=== PATIENT | female | born 1975 ===

== ENCOUNTER 2025-04-18 09:59 | Outpatient (AMB) | payer MEDICARE, OTHER, SELFPAY ==
--- NOTE | 2025-04-18 10:02 | MHC.OFFVIS ---
Intake Visit Reasons: Congnitive dysfunction and memory changes HPI Comments Details: 49 years old woman with underlying history of rheumatoid arthritis, asthma, glaucoma, and diagnosis of fibromyalgia who has been seen previously for migraine headaches. She experiences these headaches on a daily basis, characterized by severe, pounding pain that starts at the temples and spreads to the front of the head. She had previously been on Imitrex for migraines, switched due to heart disease considerations, although no details of the new medication were provided. Her extensive medication list?which includes hydroxychloroquine, Lyrica, and multiple other prescriptions for rheumatoid arthritis, heart disease, and other conditions?may be contributing to the persistence of her headaches. She has not taken doparabate or similar medications in the past, but it was proposed for management of her current headache symptoms during nighttime. The impact and interaction of these medications with her existing conditions have not been fully elucidated. She had an MRI done in February at [facility] that did not reveal any significant abnormality other than some fluid and mastoid. She was not having any hearing problem. Her laboratories revealed sed rate of 30, a normal B12, folate, and TSH. Review of Systems Narrative - Neurological: Reports daily migraine headaches with a pounding sensation starting at the temples and spreading to the front of the head. - Cardiovascular: Reports heart disease. - Musculoskeletal: Reports rheumatoid arthritis. - Ophthalmologic: Reports glaucoma. - General: Denies active use of prednisone after prior use for a cold. Assessment & Plan Assessment & Plan (1) Chronic daily headache: Comment: MRI brain WO at [facility] in Feb 2025: Fluid in mastoid, brain ok (reported) Code(s): R51.9 - Headache, unspecified Category: Medical (2) Migraine without aura: Code(s): G43.009 - Migraine without aura, not intractable, without status migrainosus Category: Medical Qualifiers: Status migrainosus presence: without status migrainosus Intractability: intractable Qualified Code(s): G43.019 - Migraine without aura, intractable, without status migrainosus Plan Impression: a: Chronic daily headaches b: Migraine w/o aura c: Fair possiblity of iatrogenic headaches d: Underlying rheumatoid arthritis and CAD Rec: Try topiramate 25mg one at bedtime. Beta blockers and calcium channel blockers are not good choice for her. Depakote might be an option. If these do not work, CGRP inhibitor might be a better option. Medications: New topiramate 25 mg orally one at night; 30 tabs 1RF Coding Level of Care Code New Pt Level 4 (71932) Diagnoses Chronic daily headache R51.9 Intractable migraine without aura and without status migrainosus G43.019 Status migrainosus presence: without status migrainosus Intractability: intractable
--- OUTSIDE RECORDS SUMMARY | 2025-04-18 11:54 | XMS_ITS | Clinical Summary ---
Author Organization [facility] Address [address] [place] [address] Phone Care Team Providers Care Boiler Out Name Role Phone Sy Youngblood MD Primary Care Provider Allergies Active Allergy Reactions Criticality Noted Date Comments Bee Venom Protein (Honey Bee) Swelling High 04/17/2017 Iodine Swelling Medium 12/24/2013 Naproxen Swelling Medium 04/26/2024 Other 08/07/2015 Seasonal Allergies Sneezing , watery eye's Soap 10/17/2023 Soap & Cleansers Detergent/dish soap - causes seth cuts on hands Medications albuterol 2.5 mg /3 mL (0.083 %) nebulizer solution TAKE 1 VIAL BY NEBULIZATION EVERY 6 HOURS NEEDED FOR WHEEZING Active ezetimibe (ZETIA) 10 mg tablet Take 1 tablet (10 mg total) by mouth 1 (one) time each day. Active isosorbide mononitrate (IMDUR) 120 mg 24 hr tablet Take 1 tablet (120 mg total) by mouth 1 (one) time each day in the evening. Active albuterol HFA (Ventolin HFA) 90 mcg/actuation inhaler INHALE 2 PUFFS BY MOUTH EVERY 4 HOURS NEEDED FOR COUGH/WHEEZING/ FOR SHORTNESS OF BREATH Active EPINEPHrine (EpiPen 2-David) 0.3 mg/0.3 mL injection Inject 0.3 mg into the muscle as needed for Other (anaphylactic reaction). 2-pack. Fill with whichever brand is covered by insurance. Active nitroglycerin (NITROSTAT) 0.[address] 1 Tablet under the tongue every 5 minutes as needed for Chest pain. As needed for chest pain Active tiZANidine (ZANAFLEX) 4 mg tablet Take 1 tablet (4 mg total) by mouth 3 (three) times a day if needed. Active montelukast (SINGULAIR) 10 mg tablet Take 1 tablet (10 mg total) by mouth at bedtime. Active latanoprost (XALATAN) 0.005 % ophthalmic solution Administer 1 drop into both eyes at bedtime. Active ketoconazole (NIZORAL) 2 % cream APPLY TOPICALLY TO TOE WEBS TWICE DAILY NEEDED Active medical supply, miscellaneous (MISCELLANEOUS MEDICAL SUPPLY MISC) Misc. Devices (Pulse Oximeter) Mis 1 Each by Does not apply route as needed for Other (due to dyspnea). Active potassium chloride 20 mEq tablet extended release Take 1 tablet by mouth 1 (one) time each day. 90 tablet 2 Active blood-glucose meter [facility] Use to test glucose once daily. 1 each Active glucose blood (Blood Glucose Test) test strip Use as instructed 100 each 2025 Active Autolet lancing device Use 1 - 4 times daily as instructed 100 each 025 2025 Active lancets lancets Use 1 - 4 times daily as instructed 100 each 025 2025 Active Xeljanz XR 11 mg ER tablet Take 1 tablet (11 mg total) by mouth 1 (one) time each day. Dr Deal - rheumatology Active budesonide-formo teroL (Symbicort) 160-4.5 mcg/actuation inhaler Inhale 2 puffs by mouth 2 (two) times a day. INHALE 2 PUFFS INTO THE LUNGS TWICE A DAY Strength: 160-4.5 mcg/actuation 1 each 025 2025 Active ibuprofen (ADVIL,MOTRIN) 600 mg tablet Take 1 tablet (600 mg total) by mouth every 8 (eight) hours if needed for moderate pain. 30 tablet Active acetaminophen (TYLENOL) 500 mg tablet Take 2 tablets (1,000 mg total) by mouth every 8 (eight) hours. 60 each Active oxyCODONE (ROXICODONE) 5 mg immediate release tablet Take 0.5 tablets (2.5 mg total) by mouth every 4 (four) hours if needed for severe pain. Max Daily Amount: 15 mg 5 each Active isosorbide mononitrate (IMDUR) 60 mg 24 hr tablet TAKE 1 TABLET BY MOUTH EVERY MORNING 90 tablet 1 Active omeprazole (PriLOSEC) [address] capsule TAKE 1 CAPSULE BY MOUTH EVERY DAY 90 capsule 1 Active budesonide-formo teroL (Breyna) 160-4.5 mcg/actuation inhaler Inhale 2 puffs by mouth 2 (two) times a day. Rinse mouth with water after use to reduce aftertaste and incidence of candidiasis. Do not swallow. 1 each 025 2025 Active pregabalin (LYRICA) 100 mg capsule TAKE 1 CAPSULE BY MOUTH TWICE DAILY 60 capsule 1 Active potassium chloride (KLOR-CON M20) 20 mEq CR tablet TAKE 1 TABLET BY MOUTH 1 (ONE) TIME EACH DAY. 90 tablet 1 Active hydrOXYzine HCL (ATARAX) 25 mg tablet Take 1 tablet (25 mg total) by mouth 1 (one) time each day if needed for itching (allergies). 30 tablet 2 Active aspirin 81 mg EC tablet TAKE 1 TABLET BY MOUTH EVERY DAY 90 tablet 1 Active methylPREDNISolo ne (MEDROL DOSPAK) 4 mg tablet Follow schedule on package instructions 1 each Active furosemide (LASIX) 20 mg tablet TAKE 1 TABLET (20 MG TOTAL) BY MOUTH 1 (ONE) TIME EACH DAY. 90 tablet 1 025 Active atorvastatin (LIPITOR) 80 mg tablet TAKE 1 TABLET BY MOUTH EVERY DAY 90 tablet 1 025 Active metFORMIN XR (GLUCOPHAGE-XR) 500 mg 24 hr tablet TAKE 1 TABLET BY MOUTH EVERY DAY WITH BREAKFAST 90 tablet 1 025 Active sertraline (ZOLOFT) 50 mg tablet TAKE 1 & 1/2 TABLETS BY MOUTH EVERY DAY 135 tablet 1 025 Active dilTIAZem CD (CARDIZEM CD) 240 mg 24 hr capsule TAKE 1 CAPSULE BY MOUTH EVERY DAY 90 capsule 1 025 Active hydroxychloroqui ne (PLAQUENIL) 200 mg tablet Take 1 tablet (200 mg total) by mouth. 025 Active sertraline (ZOLOFT) 50 mg tablet TAKE 1 & 1/2 TABLETS BY MOUTH EVERY DAY 135 tablet 1 025 2024 Discontinued dilTIAZem CD (CARDIZEM CD) 240 mg 24 hr capsule TAKE 1 CAPSULE BY MOUTH EVERY DAY 90 capsule 1 025 2024 Discontinued Active Problems Problem Noted Date Diagnosed Date Contusion of right knee 04/12/2025 Left wrist pain 03/22/2025 Pain of right thumb 08/20/2024 Thumb pain, right 04/20/2024 Other chronic pain 04/20/2024 Primary osteoarthritis, right hand 04/20/2024 Unilateral primary osteoarth ritis of first carpometacarpal joint, right hand 04/20/2024 Fusion of joint 02/04/2024 Local skin infection 10/17/2023 Degenerative arthritis of me tacarpophalangeal joint of right thumb 08/18/2023 Primary osteoarthritis of fi rst carpometacarpal joint of right hand 08/18/2023 Palpitations 05/21/2023 Overview (03/31/2024): Last Assessment & Plan: The patient has been experiencing episodes of palpitations. We will order a 30 Day Loop monitor to evaluate for any underlying arrhythmias as a cause of her symptoms. Osteoarthritis, knee 05/07/2023 Right carpal tunnel syndrome 04/23/2023 Acquired trigger finger of right ring finger 01/2023 Swelling of lower extremity 11/19/2022 Overview (03/31/2024): Last Assessment & Plan: The patient presents today for triage visit reporting lower extremity edema which has worsened for the past 3 weeks. She was seen by her manometer technician who prescribed prednisone taper and she noticed the swelling only worsened. She also was seen by her PCP where she was reporting pain in her left ankle and swelling as well. She was prescribed a topical pain medication as well as was encouraged to take Tylenol as needed. In the past, the patient has underwent lower extremity venous duplex to rule out venous insufficiency. This was in January 2022 which revealed no DVT and no significant reflux noted. She was started on furosemide 20 mg orally daily. On today's visit, the patient appears to have bilateral lower extremity edema, and the left lower extremity is slightly more edematous. There is no erythema, however she does note ecchymosis to her left knee without known injury. I will have her complete a left lower extremity ultrasound to rule out DVT. She will also increase her furosemide to 40 mg orally daily for the next 3 days. She will complete lab work including BMP, magnesium, and BNP. She will call on Friday to update us in regards to her symptoms. She will also take an extra potassium for 3 days given she has a history of hypokalemia on furosemide. I did discuss with her that her symptoms are not likely noncardiac in nature given her normal echocardiogram December 2021 which revealed normal left ventricular diastolic function and normal systolic function with an LVEF of 60 to 65%. There is also no hemodynamically significant valve disease. She will follow-up with her PCP if her symptoms do not improve on the increased dose of Lasix. CAD (coronary artery disease) 08/26/2022 Overview (03/31/2024): Last Assessment & Plan: Patient has a history of moderate nonobstructive coronary artery disease based on left heart catheterization July 2022. She also underwent a cardiac nuclear PET stress test in May which showed no evidence of ischemia or infarct and myocardial blood flow was normal. She will rarely experience atypical chest discomfort which is likely secondary to her underlying vasospastic angina. We discussed possible triggers including stress and smoking. She will work on reducing the amount that she is smoking and has already cut down to 1 or 2 cigarettes a day. She has noticed improvement in her symptoms since optimizing her medical therapy. She will continue on isosorbide mononitrate, statin, ezetimibe, aspirin and diltiazem. Lumbar disc herniation with radiculopathy 2022 Overview (03/31/2024): Last Assessment & Plan: Ms. Garcia continues to describe lower back pain radiating down her left leg to and past her knee. She is tried PT in the past with no improvement. She has had a series of epidural injections by Dr. Ward the last of which was likely in March 2022 which helped for short time. At her last visit there she was prescribed muscle relaxers which she has taken 3 times a day for the last 3 days because she is felt awful since she fell down the stairs 5 or 6 days ago due to her left leg giving out. She is has had no relief from the tizanidine. On exam, there is no step-off deformity lumbar spine, she is tender in the midline along the entire lumbar spine and down into the sacrum. Seated SLR is positive on the right at 90 degrees (not the left), strength is 5/5, sensation light touch intact, gait is slow but steady. Review of the lumbar spine MRI dated 07/09/2022 shows no significant change from the study 1 year prior. There is a left-sided annular tear at L3-4 with a mild disc bulge and a slight left-sided disc bulge at L4-5 neither of which cause belinda nerve root compression. I discussed this with Ms. Garcia and do not feel that surgery is an option. I do not have the details of her past injections but, if this was not already performed, one could consider a left L3-4 PIERRE. Otherwise, she may be a candidate for spinal cord stimulator. She should follow-up with Dr. Ward to consider these options. Lung nodules 06/06/2022 Chronic pain of left knee 04/24/2022 Constipation 04/24/2022 Asthma-COPD overlap syndrome (CMS/HCC V24, CMS/H CC V28) 04/24/2022 Edema 12/19/2021 Overview (03/31/2024): Last Assessment & Plan: The patient refers symptoms of mild lower extremity edema that occur mostly towards the end of her day. 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 The patient does mention that the use of compression stockings help to relieve her symptoms. The description of her symptoms is suggestive of lower extremity venous insufficiency. As such, we will order lower extremity venous insufficiency study for further evaluation. Given her intermittent lower extremity edema, we will also order an echocardiogram to reevaluate her cardiac function and pulmonary artery pressures. Obstructive sleep apnea 09/10/2021 Overview (03/31/2024): [facility] Home sleep test 08/31/2021; weight 176; BMI 34. AHI 6; 4 obstructive apneas and 35 hypopneas. Average oxygen saturation 89% with oxygen vicente 77%. Obstructive sleep apnea-mild with mostly hypopneas and nocturnal hypoxemia based on 2021 home sleep test. Note: Patient has had a known history of nocturnal hypoxemia. Nocturnal hypoxia 08/03/2021 Overview (03/31/2024): 07/30/21 Overnight oximetery on RA shows: 1.Lowest O2-53% but due to prolong nature possibly artificial 2.28minutues under 88% 2OVERNIGHT OXIMETERY ON CPAP SHOWED: 1. LOWEST SpO2-85%. 2. SPENT <=88%-1.3MIN 3. NO SUPPLEMENTAL OXYGEN NEEDED HTN (hypertension) 06/19/2021 Overview (03/31/2024): Last Assessment & Plan: Patient has a history of arterial hypertension. Her blood pressure is noted to be well-controlled today. She will continue her current antihypertensive medication regimen as prescribed. HLD (hyperlipidemia) 06/19/2021 Overview (03/31/2024): Last Assessment & Plan: Patient has a history of hyperlipidemia as well as a history of coronary artery disease. Her last LDL cholesterol is noted to be 76. We discussed that her goal LDL should ideally be less than 70 given her history. She does admit she misses the zetia at times. We discussed the importance of taking her medications everyday. She will continue her current medication regimen with statin and ezetimibe. She will also work on healthy diet and lifestyle to further reduce her cholesterol levels. I have reviewed with the patient the importance of a heart healthy lifestyle which includes eating a low-fat low-salt diet, getting regular exercise, maintaining a healthy weight, not smoking, and following up with routine medical care. Moderate persistent asthma 06/21/2020 Snoring 02/01/2019 Overview (03/31/2024): 01/2019 Diagnostic polysomnogram did not reveal BRANDI or nocturnal hypoxia. [facility]MC arthritis 12/03/2018 Elevated alkaline phosphatase level 10/20/2018 Coronary artery vasospasm (CMS/HCC V24) 08/10/19 Overview (03/31/2024): 08/04 NSTEMI, clean cath, likely spasm [facility] 10/08/18 - increase diltiazem to 240 mg daily, continue aspirin and high-intensity statin therapy; follow-up 2 months 11/20/2018 - sleep study, follow-up 4 months 04/07/2019 - add long-acting nitrates secondary to ongoing chest pain; follow-up in 4 months Last Assessment & Plan: The patient has a longstanding history of episodes of atypical chest discomfort. She suffered a non-STEMI in 2018 that was thought to be secondary to coronary artery vasospasm given the left heart catheterization findings. The patient states that her symptoms of chest discomfort mostly occur with emotional activity. Because of her history of vasospastic angina she is on medical therapy with diltiazem and isosorbide mononitrate. Left heart catheterization in July 2022 showed moderate nonobstructive CAD. Cardiac nuclear PET stress test done in May 2023 did not show any evidence of ischemia or infarct and the myocardial blood flow was normal at rest, reserve, and stress. Given the normal myocardial blood flow the patient is unlikely to have microvascular angina. Her longstanding episodes of atypical chest discomfort (which occur with emotional stress) are likely secondary to vasospastic angina. I explained this to the patient in great detail. I explained that relationship between vasospastic angina and cigarette smoking. I encouraged the patient to quit smoking. In the meantime, we will adjust her isosorbide mononitrate and refer the patient to take 60 mg in the morning and 120 mg in the evening. The patient will continue her current dose of diltiazem. Fatigue 08/07/2017 Chronic pain of right thumb 12/23/2016 Overview (03/31/2024): Rheum 08/30 - symptoms also consistent with fibromyalgia Stress incontinence 03/25/2016 Overview (03/31/2024): [facility] Urogynecology - 05/06/16 - Voiding diary, f/u with Dr. Padron, considering surgery 09/06/16 - mid urethral sling and cystoscopy Rheumatoid arthritis ([facility] V24, [facility] V28) 12/26/2014 Overview (06/01/2024): Follow up with Dr. [facility] 2014 Methotrexate 02/28 - 08/01 (side effects- fatigue, nausea) 03/2015 - 08/2015 sulfasalazine - stopped working 08/2015 - 07/2016= Enbrel stopped working 04/2017 - 07/2017 = Plaquenil - side effects 05/2017 - Humira stopped working spring Orencia started, stopped working 01/2020- start Olumiant 05/2024- stopped Olumiant, started on Xeljanz Left hip pain 07/04/2014 Overview (03/31/2024): 05/30/14 - [facility] - left hip trochanteric bursitis, PT and NSAIDs, injection if this doesn't work Migraine 12/24/2013 Overview (03/31/2024): Dr. Rodriguez - 12/13/15 - stop Neurontin, prednisone started, amitriptyline 25 mg once a day started; follow-up 2 months 02/05/16 - increase amitryptyline to 50mg, avoid headache triggers, f/u 3 months 05/06/16 - continue amitriptyline, sumatriptan refilled; follow-up 6 months 10/21/16 - increase amitriptyline to 100 mg per day; follow-up 3 months 02/20/17 - continue amitriptyline and sumatriptan; follow-up 6 months 08/21/17 - continue medications, avoid headache triggers; follow-up 6 months 09/01 - start Fioricet, as needed; follow-up 6 months Pain in wrist, right Encounters Date Type Department Care Team Description 04/12/2025 10:45 AM EDT Office Visit Orthopedic Surgery [address] [phone] Trista Tinsley MD Thumb pain, right (Primary Dx); Left wrist pain; Contusion of right knee, initial encounter 03/22/2025 11:15 AM EDT Office Visit Orthopedic Surgery [address] [phone] Trista Tinsley MD Left wrist pain (Primary Dx); Rheumatoid arthritis with positive rheumatoid factor, involving unspecified site (CMS/HCC V24, CMS/HCC V28) 03/18/2025 3:30 PM EDT Office Visit Orthopedic Surgery [address] [phone] Laxmi Salinas PA Pain (Primary Dx); Left wrist pain 03/07/2025 6:54 PM EDT - 03/07/2025 10:33 PM EDT Emergency [facility] Emergency [address] [place] [phone] Discharge Disposition: Left Against Medical Advice 02/25/2025 12:38 PM EDT - 02/25/2025 11:59 PM EDT Hospital Encounter Radiology Department - [address] [phone] Ataxia; Cognitive dysfunction; Memory changes; Memory loss Discharge Disposition: Home or Self Care 02/22/2025 10:15 AM EDT Office Visit Orthopedic Surgery - [address] [phone] Laxmi Salinas PA Chronic pain of right thumb (Primary Dx) 02/01/2025 9:45 AM EDT Office Visit Pulmonology [address] [phone] Nica Groves MD Rheumatoid arthritis with positive rheumatoid factor, involving unspecified site (CMS/HCC V24, CMS/HCC V28) (Primary Dx); Moderate persistent asthma without complication; Lung nodules 02/01/2025 8:30 AM EDT Ancillary Procedure Pulmonology - [place] [address] [facility] [address] [place] [phone] Systemic lupus erythematosus, unspecified SLE type, unspecified organ involvement status ([facility] V24, [facility] V28) (Primary Dx); Rheumatoid arthritis, involving unspecified site, unspecified whether rheumatoid factor present ([facility] V24, [facility] V28); ILD (interstitial lung disease) ([facility] V24, [facility] V28); Moderate persistent asthma, unspecified whether complicated 01/24/2025 11:45 AM EDT Evaluation [facility] Occupational Therapy [address] [place] [phone] Laxmi Galdamez OT Pain of right thumb (Primary Dx); Primary osteoarthritis of first carpometacarpal joint of right hand; Post-operative state 01/21/2025 11:00 AM EDT Office Visit [facility] Medicine [address] [phone] Sy Youngblood MD Fibromyalgia (Primary Dx); Rheumatoid arthritis with positive rheumatoid factor, involving unspecified site ([facility] V24, [facility] V28); Ataxia; Anxiety and depression; Type 2 diabetes mellitus without complication, without long-term current use of insulin ([facility] V24, [facility] V28); Coronary artery disease involving [place] heart, unspecified vessel or lesion type, unspecified whether angina present; Asthma-COPD overlap syndrome ([facility] V24, [facility] V28); BRANDI on CPAP 01/20/2025 11:00 AM EDT Treatment [facility] Occupational [address] [phone] Letha Palencia COTA Rheumatoid arthritis with positive rheumatoid factor, involving unspecified site ([facility] V24, [facility] V28) (Primary Dx); Pain of right thumb; Thumb pain, right; Primary osteoarthritis of first carpometacarpal joint of right hand 01/17/2025 1:00 PM EDT Treatment [facility] Occupational Therapy [address] [place] [phone] Letha Palencia COTA Rheumatoid arthritis with positive rheumatoid factor, involving unspecified site ([facility] V24, [facility] V28) (Primary Dx); Pain of right thumb; Thumb pain, right; Primary osteoarthritis of first carpometacarpal joint of right hand 01/17/2025 12:30 PM EDT Treatment [facility] [address] [phone] Nesha Dillard, PT Ataxia (Primary Dx) from Last 3 Months Immunizations Immunization Administration Dates Next Due Hepatitis B (Pflkvsn-N-Unkrx , Recombivax HB-Adult) 19yo and older 10/22/2017,05/21/2017,04/23/2017 Influenza Quadravalent, MDCK , 0.5ml, preservative free (Flucelvax) 6mo and older 02/25/2023,03/05/2021,03/20/2019,03/09 Influenza Quadravalent, MDCK , 0.5ml, with preservative (Flucelvax) 6mo and older 04/17/2017 Influenza trivalent, 0.5mL, preservative free (Fluarix; FluLaval; Fluzone) ages 6mo and older (Afluria) 3 years and older 03/29/2020,04/05/2019,03/25/2016,06/07 Influenza trivalent, MDCK, 0 .5mL, preservative free (Flucelvax) 6mo and older 03/24/2025 Moderna SARS-CoV-2 COVID-19, mRNA, LNP-S, preservative free 09/13/2021 Pneumococcal polysaccharide 23 valent (Pneumovax 23) 2yo and older 06/27/2015,06/27/2015 Tdap Tetanus diptheria acell ular pertussis (Boostrix; Adacel) 7yo and older 02/16/2014 Surgical History Surgery Date Site/Laterality Comments TUBAL LIGATION 07/21/1997 PROCEDURE: HISTORICAL TUBAL LIGATION; COMMENT: in [place] MULTIPLE TOOTH EXTRACTIONS 2008 PROCEDURE: HISTORICAL DENTAL EXTRACTION; COMMENT: dentures OTHER SURGICAL HISTORY 08/17/2014 PROCEDURE: HISTORICAL TOTAL HYSTERECTOMY W/O BSO; COMMENT: LLUVIA/RSO HYSTERECTOMY 2014 PROCEDURE: HISTORICAL HYSTERECTOMY; COMMENT: polyp and cysts partial CHOLECYSTECTOMY 02/25/2018 PROCEDURE: HISTORICAL CHOLECYSTECTOMY COLONOSCOPY 05/11/2018 PROCEDURE: HISTORICAL COLONOSCOPY; COMMENT: Visually normal; random biopsies: normal. UPPER GASTROINTESTINAL ENDOSCOPY 05/11/2018 PROCEDURE: MI UPPER GI ENDOSCOPY PERFORMED; COMMENT: Visually normal; duodenal biopsies: non-specific duodenitis CARPAL TUNNEL RELEASE 08/25/2019 Left PROCEDURE: MI NEUROPLASTY &/TRANSPOS MEDIAN NRV CARPAL TUNNE; COMMENT: with arthrotomy of L thumb OTHER SURGICAL HISTORY 06/22/2020 Left PROCEDURE: MI CROSS INTRINSIC TRANSFER EACH TENDON; COMMENT: Dr. Tinsley; trapezoid ectomy and interpositional arthroplasty using FCR tendon CATARACT EXTRACTION 06/2022 Left PROCEDURE: HISTORICAL CATARACT REMOVAL CARPAL TUNNEL RELEASE 08/25/2023 Right PROCEDURE: MI NEUROPLASTY &/TRANSPOS MEDIAN NRV CARPAL TUNNE; COMMENT: Dr. Tinsley BREAST BIOPSY nagative HAND SURGERY 04/28/2024 Right Revision of right CMC arthroplasty of the thumb, biopsy of tissue, possible wrist aspiration, possible placement of antibiotic spacer CORONARY ANGIOPLASTY FINGER HARDWARE REMOVAL 09/27/2024 Right hardware at thumb MP fusion site TRIGGER FINGER RELEASE 09/27/2024 Right right thumb Medical History Medical History Date Comments Migraine 12/24/2013 DX:Migraine Tobacco abuse 08/15/2014 DX:Tobacco abuse Homelessness 07/03/2018 DX:Homelessness Nocturnal hypoxia 08/03/2021 DX:Nocturnal h ypoxia Anxiety state DX:Anxiety state Esophageal reflux DX:Esophageal reflux Asthma DX:Asthma Hyperlipidemia DX:Hyperlipidemi a HTN (hypertension) DX:HTN (hyper tension) History of MD (myocardial infarction) 2015 DX:History of MD (myocardial infarction) Glaucoma DX:Glaucoma; COM MENT: left eye Rheumatoid arthritis ([facility] V24, [facility] V28) DX:Rheumatoid arthritis ([facility] ) COPD (chronic obstructive pu lmonary disease) ([facility] V24, [facility] V28) DX:COPD (chronic o bstructive pulmonary disease) (HCC) Myocardial infarction ([facility] V24, [facility] V28) Diabetes mellitus ([facility] V 24, [facility] V28) Depression Chronic pain disorder Neuromuscular disorder ([facility]/ [facility] V24, [facility] V28) fibermyalsia Joint pain osteoarthritis Diverticulosis Family History Medical History Relation Name Comments Arthritis Aunt paternal aunt RA Hypertension Brother 1 Other: prediabetes Brother 2 Other: abnormal Pap smear Daughter 1 No Known Problems Daughter 2 No Known Problems Daughter 3 No Known Problems Daughter 4 Coronary artery disease Father Ovarian cancer Father's side Peternal Unc le Coronary artery disease Grandparent No Known Problems Maternal Grandfather Cataracts Maternal Grandmother Ovarian cancer Maternal Grandmother ? Coronary artery disease Mother Other: myocardial infarction Mother Ovarian cancer Mother 26 No Known Problems Other No Known Problems Paternal Grandfather Cataracts Paternal Grandmother No Known Problems Sister No Known Problems Son Blindness Neg Hx Breast cancer Neg Hx Glaucoma Neg Hx Macular degeneration Neg Hx Strabismus Neg Hx Relation Name Status Comments Aunt paternal aunt Brother 1 Alive Brother 2 Alive Daughter 1 Alive Daughter 2 Alive Daughter 3 Alive Daughter 4 Alive Father Alive CAD, DM, HTN Father's side Grandparent Maternal Grandfather Maternal Grandmother Lung ca ncer, open heart surgery Mother (Age 40) MD Other Paternal Grandfather Paternal Grandmother MD Sister Son Alive Social History Tobacco Use Types Packs/Day Years Used Date Smoking Tobacco: Every Day Cigarettes 0.5 29.2 Started: 10/05/1993; Last attempted to quit: 12/14/2022 Passive Smoke Exposure: Past Smokeless Tobacco: Never Tobacco Cessation:Ready to Q uit: Not Asked; Counseling Given: Not Answered Comments:Smoking 1 1/2 of a cig daily Alcohol Use Standard Drinks/Week Comments Never 0 (1 standard drink = 0.6 oz pur e alcohol) Interpersonal Safety Answer Date Record ed Physical Abuse Unrecognized value 09/27/2024 Verbal Abuse Unrecognized value 09/27/2024 Comments No Sex and Gender Information Value Date Recorded Sex Assigned at Female 04/16/2024 4:24 PM EDT Legal Sex Female 4:33 PM EST Gender Identity Female 04/16/2024 4:24 PM EDT Sexual Orientation Straight 04/16/2024 4: 24 PM EDT Obstetrics History Last Filed Vital Signs Vital Sign Reading Time Taken Comments Blood Pressure 117/77 03/07/2025 7:09 PM EDT Pulse 73 03/07/2025 7:09 PM EDT Temperature 36.6 C (97.9 F) 03/07/2025 7:09 PM EDT Respiratory Rate 16 03/07/2025 7:09 PM EDT Oxygen Saturation 98% 03/07/2025 7:09 PM EDT Inhaled Oxygen Concentration - - Weight 79.4 kg (175 lb) 04/12/2025 10:45 AM EDT Height 154.9 cm (5' 1 ) 04/12/2025 10:45 AM EDT Body Mass Index 33.07 04/12/2025 10:45 AM EDT Plan of Treatment Upcoming Encounters Date Type Department Care Team (Late st Contact Info) Description 04/25/2025 12:30 PM EST Office Visit Adult Medicine [facility] [address], [place] [phone] Sy Youngblood MD [address] [place], [place] 06/03/2025 1:30 PM EST Office Visit Pulmonology - [address] [place] [phone] Nica Groves MD [address] [place] [phone] Health Maintenance Due Date Last Done Comments Diabetes: Annual Foot Exam 10/05/1985 Diabetes: Annual Retina Eye Exam 10/05/1985 HIV Screening 05/24/2022 Hepatitis C Screening 05/24/2022 Medicare Annual Wellness Visit 05/24/2022 Social Influencers of Health Screening 05/24/2022 DTaP,Tdap,and Td Vaccines (2 - Td or Tdap) 02/17/2024 02/16/2014 Depression Screening 06/16/2024 COVID-19 Vaccine ( season) 2025 09/13/2021, 04/04/2021, 03/05/2021 Diabetes: Blood Sugar Control Test (HGBA1C) 04/23/2025 10/21/2024, 06/23/2024, 03/02/2024, Additional history exists Diabetes: Annual Urine Albumin-Creatinine Ratio (uACR) 10/21/2025 10/21/2024, 06/23/2024 Breast Cancer Screening 02/04/2026 02/05/20 24, 02/05/2024, 01/27/2023, Additional history exists Diabetes: Annual GFR (Glomerular Filtration Rate) 03/07/2026 03/07/2025, 10/21/2024, 09/12/2024, Additional history exists Hypertension/CHF/CAD Annual BMP Blood Test 03/07/2026 03/07/2025, 10/21/2024, 09/12/2024, Additional history exists Cholesterol Screening (Lipid Panel) 10/21/2029 10/21/2024, 11/28/2023, 11/28/2023 Colorectal Cancer Screening: Colonoscopy 11/27/2033 11/28/2023 RSV Immunization Adult Patients (1 - 1-dose 75+ series) 10/05/2050 Hepatitis B Vaccines Completed 10/22/2017, 05/21/2017, 04/23/2017 Pneumococcal Vaccine: Pediatrics (0 to 5 Years) and At-Risk Patients (6 to 49 Years) Completed 05/28/2024, 06/27/2015, 06/27/2015 Influenza Vaccine Completed 03/24/2025, , 02/25/2023, Additional history exists HIB Vaccines Aged Out No longer eligi ble based on patient's age to complete this topic HPV Vaccines Aged Out No longer eligi ble based on patient's age to complete this topic Hepatitis A Vaccines Aged Out No long er eligible based on patient's age to complete this topic IPV Vaccines Aged Out No longer eligi ble based on patient's age to complete this topic MMR Vaccines Aged Out No longer eligi ble based on patient's age to complete this topic Meningococcal ACWY Vaccine Aged Out N o longer eligible based on patient's age to complete this topic Meningococcal B Vaccine Aged Out No l onger eligible based on patient's age to complete this topic RSV Immunization Patients Under 20 months Aged Out No longer eligible based on patient's age to complete this topic Varicella Vaccines Aged Out No longer eligible based on patient's age to complete this topic Goals Goal Patient Goal Type Associated Problems Recent Progress Patient-Stated? Author <enter goal here> General Worsening( 11:04 AM EDT) Yes Tania Blanchard, OT Note: I want this finger to not feel stuck so I can use my hand, not feel so much pain PT LTG - 6 visits General No Nesha Dillard, PT Note: Patient is able to ambulate 600 ft with rollator walker Patient is able to perform 5 sit to stand without UE assistance Able to improve FGA score by 8 points Patient is able to achieve 4+/5 knee flexion and extension strength bilaterally Patient is independent and compliant with HEP OT 8-10 visits General On track( 025 12:58 PM EDT) No Laxmi Galdamez, OT Note: R thumb palmar abd at least 45 to stablize small can/cup ' 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# 01/24 Met 10# R lat pinch at least 4 to enable opening food packages 01/24 Met 4# then increased pain R wrist ext at least 50 w/ tolerance for PWB'ing 01/24 Met and exceed at 60' Procedures Procedure Name Priority Date/Time Associated Diagnosis Comments XR WRIST 3+ VIEWS LEFT Routine 3:24 PM EDT Pain CBC WITH AUTO DIFFERENTIAL STAT 03/07/2025 7:37 PM EDT LIPASE STAT 03/07/2025 7:37 PM EDT COMPREHENSIVE METABOLIC PANEL STAT 03/07/2025 7:37 PM EDT CBC AND DIFFERENTIAL STAT 03/07/2025 7:37 PM EDT MR BRAIN WO CONTRAST Routine 02/25/2025 1:33 PM EDT Ataxia Cognitive dysfunction Memory changes Memory loss XR FINGERS 2+ VIEWS RIGHT Routine 02/22/2025 10:37 AM EDT Chronic pain of right thumb PULMONARY FUNCTION TESTING Routine 02/01/2025 9:06 AM EDT Systemic lupus erythematosus, unspecified SLE type, unspecified organ involvement status (CMS/[facility] V24, CMS/[facility] V28) Rheumatoid arthritis, involving unspecified site, unspecified whether rheumatoid factor present (CMS/HCC V24, CMS/HCC V28) ILD (interstitial lung disease) (CMS/HCC V24, CMS/HCC V28) Moderate persistent asthma, unspecified whether complicated MICROALBUMIN CREATININE URINE RATIO Routine 10/21/2024 12:00 PM EDT Ataxia Injury of left knee, initial encounter Primary hypertension Mixed hyperlipidemia Rheumatoid arthritis with positive rheumatoid factor, involving unspecified site (CMS/HCC V24, CMS/HCC V28) Asthma-COPD overlap syndrome (CMS/HCC V24, CMS/HCC V28) Coronary artery vasospasm (CMS/HCC V24) Prediabetes HEMOGLOBIN A1C Routine 10/21/2024 12:00 PM EDT Ataxia Injury of left knee, initial encounter Primary hypertension Mixed hyperlipidemia Rheumatoid arthritis with positive rheumatoid factor, involving unspecified site (CMS/HCC V24, CMS/HCC V28) Asthma-COPD overlap syndrome (CMS/HCC V24, CMS/HCC V28) Coronary artery vasospasm (CMS/HCC V24) Prediabetes LIPID PANEL WITH REFLEX TO DIRECT LDL Routine 10/21/2024 12:00 PM EDT Ataxia Injury of left knee, initial encounter Primary hypertension Mixed hyperlipidemia Rheumatoid arthritis with positive rheumatoid factor, involving unspecified site (CMS/HCC V24, CMS/HCC V28) Asthma-COPD overlap syndrome (CMS/HCC V24, CMS/HCC V28) Coronary artery vasospasm (CMS/HCC V24) Prediabetes SCREENING MAMMOGRAPHY BI 2-VIEW BREAST INC CAD Routine 02/05/2024 10:32 AM EDT Encounter for screening mammogram for malignant neoplasm of breast from Last 3 Months or Most Recently Relevant to Health Maintenance Results * XR Wrist 3+ Views Left (03/18/2025 3:24 PM EDT) Anatomical Region Laterality Modality Upper Extremities, Wrist Left Compute d Radiography Narrative 03/18/2025 4:22 PM EDT Date of Visit: 03/18/2025 Reason for visit: Left wrist pain after fall Views: AP, lateral, oblique and scaphoid view Comparison: X-rays of the left wrist from 2019 Findings: Mild arthritic changes of the radiocarpal joint and diffuse cystic changes of the carpal bone. Sequelae of prior trapeziectomy interpositional arthroplasty left thumb. No acute findings or evidence of fracture. Alignment maintained no widening of scapholunate interval Impression: Postsurgical changes no acute findings no fracture us Laxmi BROOKS IMG XR PROCEDURES Final Resul t * (ABNORMAL) CBC auto differential (03/07/2025 7:37 PM EDT) WBC 15.6(H) 4.8 - 10.8 K/mcL LAB [facility] RBC 4.40 3.80 - 4.80 M/mcL [facility]07[facility]25 [facility] Hemoglobin 13.1 11.5 - 16.0 g/dL LAB HEMETOLOGY METHOD 03/07/2025 8:26 PM [facility] Hematocrit 39.0 35.0 - 47.0 % LAB HEMETOLOGY METHOD 03/07/2025 8:26 PM [facility] MCV 87.8 79.0 - 98.0 FL LAB HEMETOLOGY METHOD 03/07/2025 8:26 PM EDT [facility] MCH 29.5 27.0 - 32.0 pcg LAB HEMETOLOGY METHOD 03/07/2025 8:26 PM [facility] MCHC 33.6 32.0 - 37.0 g/dL LAB HEMETOLOGY METHOD 03/07/2025 8:26 PM [facility] RDW 17.6(H) 11.0 - 15.0 % LAB HEMETOLOGY METHOD 03/07/2025 8:26 PM [facility] Platelets 336 130 - 400 K/mcL LAB HEMETOLOGY METHOD 03/07/2025 8:26 PM EDT [facility] MPV 11.3(H) 7.0 - 11.0 FL LAB HEMETOLOGY METHOD 03/07/2025 8:26 PM [facility] NRBC 0.0 <1.0 % LAB [facility]OLOGY [facility]07[facility]2025 8[facility] NRBC Absolute 0.00 <0.10 K/mcL LAB HEMETOLOGY METHOD 03/07/2025 8:26 PM [facility] Neutrophils Relative 74.9 % LAB HEMETOLOGY METHOD 03/07/2025 8:26 PM [facility] Lymphocytes Relative 20.3 % LAB HEMETOLOGY METHOD 03/07/2025 8:26 PM [facility] Monocytes Relative 4.3 % LAB HEMETOLOGY METHOD 03/07/2025 8:26 PM [facility] Eosinophils Relative 0.0 % LAB HEMETOLOGY METHOD 03/07/2025 8:26 PM [facility] Basophils Relative 0.1 % LAB HEMETOLOGY METHOD 03/07/2025 8:26 PM [facility] Immature Granulocytes Relative 0.4 % LAB HEMETOLOGY METHOD 03/07/2025 8:26 PM [facility] Neutrophils Absolute 11.65(H) 1.50 - 7.00 K/mcL LAB HEMETOLOGY METHOD 03/07/2025 8:26 PM [facility] Lymphocytes Absolute 3.16 1.00 - 5.00 K/mcL LAB HEMETOLOGY METHOD 03/07/2025 8:26 PM [facility] Monocytes Absolute 0.67 0.20 - 1.00 K/mcL LAB HEMETOLOGY METHOD 03/07/2025 8:26 PM [facility] Eosinophils Absolute 0.00 0.00 - 0.50 K/[facility] LAB HEMETOLOGY METHOD 03/07/2025 8:26 PM EDT [facility] Basophils Absolute 0.01 0.00 - 0.20 K/[facility] LAB HEMETOLOGY METHOD 03/07/2025 8:26 PM EDT [facility] Immature Granulocytes Absolute 0.07(H) 0.00 - 0.03 K/[facility] LAB HEMETOLOGY METHOD 03/07/2025 8:26 PM EDT [facility] Blood Venous blood specimen / Unknown Venipuncture / Unknown 03/07/2025 7:37 PM EDT 03/07/2025 8:10 PM EDT Keyon Farfan MD LAB BLOOD ORDERABLES Final R esult Performing Organization Address City/[facility]/ZIP Co de Phone Number [facility] [address] [place] [address], [place] [phone] * Lipase (03/07/2025 7:37 PM EDT) Lipase 36 13 - 75 unit/L LAB CHEMISTRY METHOD 03/07/2025 8:47 PM EDT [facility] Blood Venous blood specimen / Unknown Venipuncture / Unknown 03/07/2025 7:37 PM EDT 03/07/2025 8:10 PM EDT Keyon Farfan MD LAB BLOOD ORDERABLES Final R esult [facility] [address] [place] [address], [place] [phone] * (ABNORMAL) Comprehensive metabolic panel (03/07/2025 7:37 PM EDT) Sodium 141 133 - 145 mmol/L LAB CHEMISTRY METHOD 03/07/2025 8:47 PM EDT [facility] Potassium 3.1(L) 3.5 - 5.5 mmol/L LAB CHEMISTRY METHOD 03/07/2025 8:47 PM [facility] Chloride 108 96 - 110 mmol/L LAB CHEMISTRY METHOD 03/07/2025 8:47 PM [facility] CO2 27 21 - 32 mmol/L LAB CHEMISTRY METHOD 03/07/2025 8:47 PM [facility] Anion Gap 6 3 - 11 LAB CHEMISTRY METHOD 03/07/2025 8:47 PM [facility] Glucose 90 70 - 100 mg/dL LAB CHEMISTRY METHOD 03/07/2025 8:47 PM [facility] BUN 11 5 - 25 mg/dL LAB CHEMISTRY METHOD 03/07/2025 8:47 PM [facility] Creatinine 0.75 0.50 - 1.10 mg/dL LAB CHEMISTRY METHOD 03/07/2025 8:47 PM [facility] eGFR 98 >=60 mL/min/1. 73m2 LAB CHEMISTRY METHOD 03/07/2025 8:47 PM [facility] Comment:Calculation based on the Chronic Kidney Disease Epidemiology Collaboration (CKD-EPI) equation refit without adjustment for race. BUN/Creatinine Ratio 14.7 LAB CHEMISTRY METHOD 03/07/2025 8:47 PM [facility] Calcium 9.0 8.5 - 10.5 mg/dL LAB CHEMISTRY METHOD 03/07/2025 8:47 PM [facility] AST (SGOT) 17 10 - 42 unit/L LAB CHEMISTRY METHOD 03/07/2025 8:47 PM [facility] ALT (SGPT) 51 10 - 60 unit/L LAB CHEMISTRY METHOD 03/07/2025 8:47 PM [facility] Alkaline Phosphatase 180(H) 42 - 121 unit/L LAB CHEMISTRY METHOD 03/07/2025 8:47 PM [facility] Total Protein 6.8 6.0 - 8.0 g/dL LAB CHEMISTRY METHOD 03/07/2025 8:47 PM EDT [facility] Albumin 3.4 3.2 - 5.0 g/dL LAB CHEMISTRY METHOD 03/07/2025 8:47 PM EDT [facility] Total Bilirubin 0.2 0.0 - 1.4 mg/dL LAB CHEMISTRY METHOD 03/07/2025 8:47 PM EDT [facility] Blood Venous blood specimen / Unknown Venipuncture / Unknown 03/07/2025 7:37 PM EDT 03/07/2025 8:10 PM EDT us Keyon Farfan MD LAB BLOOD ORDERABLES Final R esult [facility] [address] [place] [address], * MR Brain wo Contrast (02/25/2025 1:33 PM EDT) Anatomical Region Laterality Modality Head and Neck Magnetic Resonan ce 02/25/2025 3:40 PM EDT Impressions 02/25/2025 3:51 PM EDT Impression: 1. No acute intracranial process. 2. Small amount of fluid within the left greater than right mastoids which could represent mastoiditis in the appropriate clinical setting. -------- FINAL REPORT -------- Dictated By: Colette Dietz Dictated Date: 02/25/2025 15:40 ET Assigned Physician: Colette Dietz Reviewed and Electronically Signed By: Colette Dietz Signed Date: 02/25/2025 15:51 ET Workstation ID: [id number] Transcribed By: Self Edit Transcribed Date: 02/25/2025 15:40 ET Narrative 02/25/2025 3:51 PM EDT MRI BRAIN WITHOUT CONTRAST Clinical Statement: Memory Loss Comparison: None Technique: Multiplanar, multisequence MR images of the brain were obtained without contrast. Findings: There is no evidence of diffusion restriction. Brain parenchyma is within normal limits. Intracranial flow voids are within normal limits. The ventricular system is normal in size and morphology. The basilar cisterns are within normal limits. The craniocervical junction is grossly within normal limits. The orbits and globes are within normal limits. Trace mucosal thickening within the paranasal sinuses. Small amount of fluid within the left greater than right mastoids. Procedure Note Colette Dietz MD - 02/25/2025 MRI BRAIN WITHOUT CONTRAST Clinical Statement: Memory Loss Comparison: None Technique: Multiplanar, multisequence MR images of the brain wereobtained without contrast. Findings: There is no evidence of diffusion restriction. Brain parenchymais within normal limits. Intracranial flow voids are within normallimits. The ventricular system is normal in size and morphology. Thebasilar cisterns are within normal limits. The craniocervical junction isgrossly within normal limits. The orbits and globes are within normallimits. Trace mucosal thickening within the paranasal sinuses. Smallamount of fluid within the left greater than right mastoids. IMPRESSION: Impression: 1. No acute intracranial process. 2. Small amount of fluid within the left greater than right mastoids whichcould represent mastoiditis in the appropriate clinical setting. -------- FINAL REPORT -------- Dictated By: Colette Dietz Dictated Date: 02/25/2025 15:40 ET Assigned Physician: Colette Dietz Reviewed and Electronically Signed By: Colette Dietz Signed Date: 02/25/2025 15:51 ET Workstation ID: [id number] Transcribed By: Self Edit Transcribed Date: 02/25/2025 15:40 ET Lorenza BROOKS IMG MRI PROCEDURES Final Result * XR Fingers 2+ Views Right (02/22/2025 10:37 AM EDT) Anatomical Region Laterality Modality Upper Extremities, Fingers Right Compu fernando Radiography Narrative 02/22/2025 11:06 AM EDT Date of Visit: 02/22/2025 Reason for visit: Right thumb pain Views: AP, lateral, oblique right thumb Comparison: X-rays from 2023, prior to hardware removal from MP joint Findings: Hardware from MP joint has since been removed. Solid MP joint fusion. Alignment of the thumb metacarpal maintained. No significant subsidence. Anchors visualized. No obvious soft tissue swelling. Impression: Right thumb postsurgical changes, stable. No acute findings Laxmi BROOKS IMG XR PROCEDURES Final Resul t * Pulmonary function testing: Carbon Monoxide Diffusing Capacity, Spirometry with Bronchodilator (02/01/2025 9:06 AM EDT) Impressions Nevin Mcneil MD - 02/01/2025 9:06 AM EDT FEV1/FVC 86%. FEV1 1.98 at 78%. FVC 72%. No bronchodilator response. TLC 71%. RV 54%. DLCO 55% (69%). No obstruction. Mild restriction. And moderate decrease in diffusion. Findings consistent with mild restrictive lung disease. us Nica Groves MD PFT ORDERABLES Final Result * Lipid panel with reflex to direct LDL (10/21/2024 12:00 PM EDT) Cholesterol 165 0 - 200 mg/dL LAB CHEMISTRY METHOD 10/21/2024 2:54 PM EDT [facility] Triglycerides 140 0 - 150 mg/dL LAB CHEMISTRY METHOD 10/21/2024 2:54 PM EDT [facility] HDL 48 >=40 mg/dL LAB CHEMISTRY METHOD 10/21/2024 2:54 PM EDT [facility] LDL Calculated 89 0 - 100 mg/dL LAB CHEMISTRY METHOD 10/21/2024 2:54 PM EDT [facility] VLDL Cholesterol Edy 28 mg/dL LAB CHEMISTRY METHOD 10/21/2024 2:54 PM EDT [facility] Non HDL Chol. (LDL+VLDL) 117 <145 mg/dL LAB CHEMISTRY METHOD 10/21/2024 2:54 PM EDT [facility] Chol/HDL Ratio 3.4 0.0 - 4.4 LAB CHEMISTRY METHOD 10/21/2024 2:54 PM EDT [facility] Blood Venous blood specimen / Unknown Venipuncture / Unknown 10/21/2024 12:00 PM EDT 10/21/2024 12:00 PM EDT Lorenza BROOKS LAB BLOOD ORDERABLES Fin al Result [facility] [address] [place] [address], [place] [phone] * Microalbumin creatinine urine ratio (10/21/2024 12:00 PM EDT) Creatinine, Urine 68.0 mg/dL LAB CHEMISTRY METHOD 10/21/2024 3:29 PM EDT [facility] Microalb, Ur <5.0 0.0 - 29.0 mg/L LAB CHEMISTRY METHOD 10/21/2024 3:29 PM EDT [facility] Microalb/Creat Ratio <7 <30 mg/g creat LAB CHEMISTRY METHOD 10/21/2024 3:29 PM EDT [facility] Urine Urine specimen obtained by clean catch procedure / Unknown Non-blood Collection / Unknown 10/21/2024 12:00 PM EDT 10/21/2024 12:00 PM EDT Lorenza BROOKS LAB URINE ORDERABLES Fin al Result [facility] [address] [place] [address], [place] [phone] * (ABNORMAL) Hemoglobin A1c (10/21/2024 12:00 PM EDT) Hemoglobin A1C 6.7(H) <6.5 % LAB CHEMISTRY METHOD 10/21/2024 10:12 PM EDT [facility] Mean Bld Glu Estim. 146 mg/dL LAB CHEMISTRY METHOD 10/21/2024 10:12 PM EDT [facility] Blood Venous blood specimen / Unknown Venipuncture / Unknown 10/21/2024 12:00 PM EDT 10/21/2024 12:00 PM EDT Lorenza BROOKS LAB BLOOD ORDERABLES Fin al Result [facility] [address] [place] [address], * SCREENING MAMMOGRAPHY BI 2-VIEW BREAST INC CAD (02/05/2024 10:32 AM EDT) Anatomical Region Laterality Modality Radiographic Natalia ging 01/27/2023 10:3 8 AM EDT Narrative 02/05/2024 6:22 PM EDT This is a summary report. The complete report is available in the patient's medical record. If you cannot access the medical record, please contact the sending organization for a detailed fax or copy. Study: SCREENING MAMMOGRAPHY BI 2-VIEW BREAST INC CAD Technique: Bilateral full-field digital screening mammography is obtained and read in conjunction with computer aided detection. Tomosynthesis as well as 2D C-View imaging were obtained. Comparison: Comparison made to multiple priors, most recent January 27, 2023, and most remote November 30, 2015. Breast composition: The breast tissue is heterogeneously dense, which may obscure small masses. Bilateral breasts: No significant masses, suspicious calcifications or other abnormalities are seen in either breast. IMPRESSION: Impression: Bilateral breasts: Negative, no specific mammographic evidence of malignancy. Normal interval follow-up is recommended in 12 months. BI-RADS: Category 1: Negative Procedure Note Kay Delaney MD - 03/31/2024 This is a summary report. The complete report is available in thepatient's medical record. If you cannot access the medical record, pleasecontact the sending organization for a detailed fax or copy. Study: SCREENING MAMMOGRAPHY BI 2-VIEW BREAST INC CAD Technique: Bilateral full-field digital screening mammography is obtainedand read in conjunction with computer aided detection. Tomosynthesis aswell as 2D C-View imaging were obtained. Comparison: Comparison made to multiple priors, most recent January, and most remote November 30, 2015. Breast composition: The breast tissue is heterogeneously dense, which mayobscure small masses. Bilateral breasts: No significant masses, suspicious calcifications orother abnormalities are seen in either breast. IMPRESSION: Impression: Bilateral breasts: Negative, no specific mammographic evidence ofmalignancy. Normal interval follow-up is recommended in 12 months. BI-RADS: Category 1: Negative us Sy Youngblood MD IMG XR PROCEDURES Final Res ult from Last 3 Months or Most Recently Relevant to Health Maintenance Insurance [facility] MEDICARE MEDICAID - [place] Advance Directives * Full Code - Default (Latest Code Status on File) Date Activated Date Inactivated Comments 09/27/2024 6:23 AM 09/27/2024 12:02 PM This is ord er is used when code status has not been discussed with the patient, or code status is otherwise unknown/unconfirmed To update the patient's code status, place a code status order. Do not modify or discontinue any currently active code status orders. * Full Code - Default Date Activated Date Inactivated Comments 04/28/2024 10:00 AM 04/28/2024 5:35 PM This is o rder is used when code status has not been discussed with the patient, or code status is otherwise unknown/unconfirmed To update the patient's code status, place a code status order. Do not modify or discontinue any currently active code status orders. * Full Code - Default Date Activated Date Inactivated Comments 04/28/2024 10:00 AM 04/28/2024 10:00 AM This is order is used when code status has not been discussed with the patient, or code status is otherwise unknown/unconfirmed To update the patient's code status, place a code status order. Do not modify or discontinue any currently active code status orders. Care Teams Boiler Out Relationship Specialty Start Date End Date Sy Youngblood MD [address] [place] [address] PCP - General Internal Medicine 01/24/22
--- OUTSIDE RECORDS SUMMARY | 2025-04-18 11:54 | XMS_ITS | Clinical Summary ---
Author Organization [facility] Address [address] [place] [address] Care Team Providers Care Reel Operator Name Role Phone Sy Youngblood MD Primary Care Provider [phone] Allergies Active Allergy Reactions Criticality Noted Date Comments Bee Sting 03/05/2023 Iodine 03/05/2023 Seasonal 03/05/2023 Medications Medication Sig Dispensed Refills Start Date End Date Status aspirin EC 81 MG tablet Take 1 tablet (81 mg total) by mouth daily. 0 Active nitroglycerin (NITROSTAT) 0.[address] 1 tablet (0.4 mg total) under the tongue every 5 (five) minutes as needed for chest pain. 0 Active omeprazole (PriLOSEC) 20 MG capsule Take 1 capsule (20 mg total) by mouth daily. 0 Active triamcinolone acetonide (KENALOG) 10 MG/ML injection Inject into the articular space once. 0 Active dilTIAZem (CARDIZEM CD) 240 MG 24 hr capsule Take 1 capsule (240 mg total) by mouth daily. 0 Active Diclofenac Sodium 1 % GEL Apply topically. 0 Active Albuterol Sulfate 108 (90 Base) MCG/ACT AEPB Inhale into the lungs. 0 Active fluticasone (FLONASE) 50 MCG/ACT nasal spray spray/apply 1 spray in each nostril daily. 0 Active albuterol (ACCUNEB) 0.63 MG/3ML nebulizer soln (NICU) Take 3 mL (0.63 mg total) by nebulization every 6 (six) hours as needed for wheezing. 0 Active montelukast (SINGULAIR) 10 MG tablet Take 1 tablet (10 mg total) by mouth every night at bedtime. 0 Active diclofenac (VOLTAREN) 50 MG EC tablet Take 1 tablet (50 mg total) by mouth 2 (two) times a day. 0 Active furosemide (LASIX) 20 MG tablet Take 1 tablet (20 mg total) by mouth 2 (two) times a day. 0 Active acetaminophen (TYLENOL) 325 MG tablet Take 2 tablets (650 mg total) by mouth every 6 (six) hours as needed for pain. 0 Active terbinafine (LamiSIL) 250 MG tablet Take 1 tablet (250 mg total) by mouth daily. 0 Active isosorbide mononitrate (IMDUR) 120 MG 24 hr tablet Take 1 tablet (120 mg total) by mouth daily. 0 Active buPROPion (WELLBUTRIN XL) 150 MG 24 hr tablet Take 1 tablet (150 mg total) by mouth daily. 0 Active atorvastatin (LIPITOR) tablet 80 mg Take 1 tablet (80 mg total) by mouth daily. 0 Active pregabalin (LYRICA) capsule 150 mg Take 1 capsule (150 mg total) by mouth 2 (two) times a day. 0 Active baricitinib (OLUMIANT) 2 MG tablet daily. 0 Active Active Problems No known active problems Social History Tobacco Use Types Packs/Day Years Used Date Smoking Tobacco: Former Cigarettes Smokeless Tobacco: Never Tobacco Cessation:Counseling Given: Not Answered Alcohol Use Standard Drinks/Week Comments Never 0 (1 standard drink = 0.6 oz pur e alcohol) Sex and Gender Information Value Date Recorded Sex Assigned at Not on file Gender Identity Not on file Sexual Orientation Not on file Job Start Date Occupation Industry Not on file Not on file Not on file Last Filed Vital Signs Vital Sign Reading Time Taken Comments Blood Pressure 121/94 02/12/2023 11:28 AM EDT Pulse 99 02/12/2023 11:28 AM EDT Temperature 36.3 C (97.3 F) 02/12/2023 11:28 AM EDT Respiratory Rate - - Oxygen Saturation 100% 02/12/2023 11:28 AM EDT Inhaled Oxygen Concentration - - Weight 76.2 kg (168 lb) 02/12/2023 11:28 AM EDT Height - - Body Mass Index - - Plan of Treatment Health Maintenance Due Date Last Done Comments Hepatitis C Screening 1975 Depression Screening 1987 Preventative Health Evaluation 10/05/1993 Cervical Cancer Screening (Pap Smear) 10/05/1996 Colon Cancer Screening (Colonoscopy) 10/05/2020 DTap / Tdap / Td (2 - Td or Tdap) 02/17/2024 02/16/2014 COVID-19 Vaccine (3 - season) 2025 04/04/2021, 03/05/2021 Influenza Vaccine (#1) 2025 3, 03/05/2021, 03/29/2020, Additional history exists Pneumococcal Vaccine Aged Out 06/27/2015 No long er eligible based on patient's age to complete this topic Hepatitis B Vaccines Completed 10/22/2017, 05/21/2017, 04/23/2017 RSV Ped < 20 months Aged Out No longe r eligible based on patient's age to complete this topic Care Teams Reel Operator Relationship Specialty Start Date End Date Sy Youngblood MD [address] [place] [id number] PCP - General Hospitalist Medicine 12/13/22
== END 2025-04-18 10:36 | disposition home or self-care (01) ==
PROVIDERS: PCP Physician Assistant; Visit Provider Psychiatry & Neurology Neurology
DX: R51.9 Headache, unspecified (principal); G43.019 Migraine without aura, intractable, without status migrainosus
CPT/HCPCS: 99204

== ENCOUNTER → 2025-04-18 09:59 | Outpatient (BNVA) | payer MEDICARE, MEDICAID, SELFPAY | PROVIDERS: PCP Physician Assistant; Visit Provider Psychiatry & Neurology Neurology | DX: G43.019 Migraine without aura, intractable, without status migrainosus (principal); M06.9 Rheumatoid arthritis, unspecified; R41.3 Other amnesia; M79.7 Fibromyalgia | CPT/HCPCS: 99202 ==

== ENCOUNTER 2025-05-18 11:15 | Outpatient (AMB) | payer MEDICARE, OTHER, SELFPAY ==
--- NOTE | 2025-05-18 11:18 | MHC.OFFVIS ---
Vital Signs 05/18/25 11:25 Height 5 ft 1 in Weight 167 lb BMI 31.6 BP 102/70 Blood Pressure Location Lt brachial Position Sitting Respiration 16 Pulse 101 H Pulse Source Pulse Oximeter Pulse Oximetry (%) 99 Oxygen Delivery Method Room Air Intake Visit Reasons: 1 month follow up Boatswain'S Mate Required: No Allergies naproxen Allergy (Severe, Verified 05/18/25 11:26) Swelling HPI Comments Details: Kristy is a 49-year-old female patient with a past medical history of [place], rheumatoid arthritis, asthma, glaucoma, and diagnosis of fibromyalgia who is following headache. She was most recently seen on 04/18/2025 by Michael and placed on topiramate 25 mg at bedtime. She tells me that since the time of her last visit, she has been taking the 25 mg of topiramate at bedtime and is tolerating it well however it has not made any impact in her headaches. She continues with daily headaches generally arise upon wakening in the morning described as a bitemporal pounding sensation associated with light and sound sensitivities and occasional nausea. She does have varying intensities with her headaches. She also has occasional dizziness and blurry vision when headaches become more intense. She is followed by speeder hand and her last eye exam was approximately 2 weeks ago. She does have a history of glaucoma but her exam was stable. Sleep: Reports poor sleep and history of BRANDI. She uses a cpap at least 4 hours per night. Caffine: 1 cup per day ETOH:None Tobacco: 1-2 cigarettes per day Past medication trials: Topiramate- No benefit Sumatriptan- Some benefit * not a good candidate for antihypertensive agents given Current use of diltiazem and isosorbide prescribed for cardiovascular reasons * not a good candidate for tricyclic antidepressants given cardiac history and current use of sertraline PFSH Social History Alcohol intake: never Patient Tobacco Use Status: Current everyday Tobacco user Tobacco use type: Cigarette Cigarettes Per Day: 2 Review of Systems Const All systems reviewed & are unremarkable except as noted in HPI and below Physical Exam Vital Signs: Last Vital Signs Pulse 101 H 05/18/25 11:25 Resp 16 05/18/25 11:25 BP 102/70 05/18/25 11:25 Pulse Ox 99 12/03/25 11:25 Oxygen Delivery Method Room Air 12/03/25 11:25 BMI result Body Mass Index 31.6 Const General: cooperative, healthy appearing, comfortable and no acute distress Nutritional Appearance: well nourished Orientation/consciousness: patient oriented x3 Limitations: no limitations HEENT Head: Yes normal to inspection and Yes normocephalic Eyes General: appearance normal, both eyes and all related structures Visual Holden: normal visual holden by confrontation Alignment and Position: alignment normal Periorbital: periorbital findings normal Eyelids: Yes eyelids normal Conjunctivae: conjunctivae normal Sclerae: sclerae normal Back/Spine/Pelvis Other: Bilateral occipital notch tenderness and bilateral upper trapezius tenderness Neuro General: patient oriented x3 Cranial nerves: Yes CN's II-XII intact bilaterally and Yes Facial sensation intact/muscles of mastication intact Cognition (Neuro): normal cognition Gait exam (Neuro): Normal gait present Motor exam (neuro): 5/5 motor strength present throughout and no tremor noted Sensory Exam: double simultaneous stimulation for sensation normal Romberg Test: Negative Pupils: Normal pupillary reactivity/response: bilateral Psych Appearance: grossly normal Mental Status: mental status grossly normal Speech and movement: Normal speech and movement present and Clear speech present Affect: normal affect Attitude: cooperative Thought process: Normal thought process present Thought content: Normal thought content present Insight: Good insight present (Psych) Judgement: Good judgement present (Psych) Assessment & Plan Assessment & Plan (1) Chronic migraine without aura without status migrainosus, not intractable: Code(s): G43.709 - Chronic migraine without aura, not intractable, without status migrainosus Category: Medical (2) Muscle pain, myofascial: Code(s): M79.18 - Myalgia, other site Category: Medical (3) Occipital neuralgia: Code(s): M54.81 - Occipital neuralgia Category: Medical (4) BRANDI on CPAP: Code(s): G47.33 - Obstructive sleep apnea (adult) (pediatric) Category: Medical Plan Kristy is a 49-year-old female patient with a past medical history of [place], rheumatoid arthritis, asthma, glaucoma, and diagnosis of fibromyalgia who is following headache. Headaches can be classified as chronic migraine-type headaches though there was a strong myofascial components/tension component based on her exam today. Her poor sleep quality may be playing a role no she is using her CPAP device nightly. Her past history and current use of medications limits our options for therapy. She can not take Triptan due to history of [place] and can not use antihypertensive agents or tricyclic antidepressants because of this as well also taking into consideration her current medications. -discontinue topiramate -start a trial of Aimovig 70 mg monthly -follow up in 3 months at which time we can consider options for acute therapy based on her response to the injectable -future considerations: Occipital nerve block injections and Botox therapy could also trialed Depakote in dire need however side effects or unfavorable and I would like to avoid if possible Medications: New erenumab-aooe (Aimovig Autoinjector) 70 mg subcut QMONTH 1 mL 5RF Discontinued topiramate Discontinued Reason: Doctor's Order 25 mg orally one at night; 30 tabs 1RF Coding Level of Care Code Est Pt Level 4 (65464) Diagnoses Chronic migraine without aura without status migrainosus, not intractable G43.709 Muscle pain, myofascial M79.18 Occipital neuralgia M54.81 BRANDI on CPAP G47.33
[2025-05-18 11:25] VITALS: BP 102/70; PULSE 101; RESP 16; O2SAT 99; BMI 31.6
--- OUTSIDE RECORDS SUMMARY | 2025-05-18 13:28 | XMS_ITS | Encounter Summary ---
Author Organization [facility] Address [address] [place] [address] Care Team Providers Care Twister Hand Name Role Phone Sy Youngblood MD Primary Care Provider [phone]- [phone] Encounter Details Date Type Department Care Team (Late st Contact Info) Description 04/25/2025 Results Follow-Up Adult Medicine [address] [phone] Sy Youngblood MD [address] [place] [address] Social History Tobacco Use Types Packs/Day Years Used Date Smoking Tobacco: Every Day Cigarettes 0.5 29.2 Started: 10/05/1993; Last attempted to quit: 12/14/2022 Passive Smoke Exposure: Past Smokeless Tobacco: Never Comments:Smoking 1 1/2 of a cig daily [...] Orientation Straight 04/16/2024 4: 24 PM EDT documented as of this encounter Plan of Treatment Upcoming Encounters Date Type Department Care Team (Late st Contact Info) Description 05/26/2025 11:00 AM EST Evaluation [facility] [place] [address] [facility] [address] [place] [phone] Shiraz Alonzo, PT [address] [place] [address] 06/03/2025 1:30 PM EST Office Visit Pulmonology - [place] [address] [facility] [address] [place] [phone] Nica Groves MD [address] [place] [phone] 06/27/2025 10:30 AM EST Office Visit Adult Medicine [facility] [place] [address] [place] [phone] Lorenza Fine PA [address] [place] [phone] documented as of this encounter Goals Goal Patient Goal Type Associated Problems [...] 45 to stablize small can/cup ' R crop pest control specialist at least 10# 01/24 Met 10# R lat pinch at least 4 to enable opening food packages 01/24 Met 4# then increased pain R wrist ext at least 50 w/ tolerance for PWB'ing 01/24 Met and exceed at 60' documented as of this encounter Visit Diagnoses Not on filedocumented in this encounter Care Teams Twister Hand Relationship Specialty Start Date End Date Sy Youngblood MD [address] [place] [address] PCP - General Internal Medicine 01/24/22 documented as of this encounter
--- OUTSIDE RECORDS SUMMARY | 2025-05-18 13:29 | XMS_ITS | Clinical Summary ---
Author Organization [facility] [employer] [facility] Prior to 11/13/24 Address [address] [place] [address] Care Team Providers Care Outpatient Coder Name Role Phone Sy Youngblood MD Primary Care Provider [phone]- [phone] Allergies Active Allergy Reactions Criticality Noted Date [...] Td or Tdap) 02/17/2024 02/16/2014 COVID-19 Vaccine ( season) 2025 04/04/2021, 03/05/2021 Influenza Vaccine (#1) 2025 3, 03/05/2021, 03/29/2020, Additional history exists Pneumococcal Vaccine Aged Out 06/27/2015 No long er eligible based on patient's age to complete this topic Hepatitis B Vaccines Completed 10/22/2017, 05/21/2017, 04/23/2017 RSV Ped < 20 months Aged Out No longe r eligible based on patient's age to complete this topic Care Teams Outpatient Coder Relationship Specialty Start Date End Date Sy Youngblood MD [address] [place] [id number] PCP - General Hospitalist Medicine 12/13/22
--- OUTSIDE RECORDS SUMMARY | 2025-05-18 13:29 | XMS_ITS | Clinical Summary ---
Author Organization [facility] Address [address] [place] [address] Phone Care Team Providers Care Retail Sales Director Name Role Phone Sy Youngblood MD Primary [...] pain. As needed for chest pain Active montelukast (SINGULAIR) 10 mg tablet Take [...] day. 90 tablet 2 Active blood-glucose meter [facility] Use to test glucose once daily. 1 each Active glucose blood (Blood Glucose Test) test strip Use as instructed 100 each 2025 Active Autolet lancing device Use 1 - 4 times daily as instructed 100 each 2025 Active lancets lancets Use 1 - [...] A DAY Strength: 160-4.5 mcg/actuation 1 each 2025 Active acetaminophen (TYLENOL) 500 mg tablet Take 2 tablets (1,000 mg total) by mouth every 8 (eight) hours. 60 each Active omeprazole (PriLOSEC) [address] capsule TAKE 1 CAPSULE BY MOUTH EVERY DAY 90 capsule 1 Active budesonide-formo teroL (Breyna) 160-4.5 mcg/actuation inhaler Inhale 2 puffs by mouth 2 (two) times a day. Rinse mouth with water after use to reduce aftertaste and incidence of candidiasis. Do not swallow. 1 each 12 025 2025 Active potassium chloride (KLOR-CON M20) 20 mEq [...] EVERY DAY 90 tablet 1 025 Active furosemide (LASIX) 20 mg tablet TAKE 1 TABLET (20 MG TOTAL) BY MOUTH 1 (ONE) TIME EACH DAY. 90 tablet 1 025 Active atorvastatin (LIPITOR) 80 mg tablet TAKE 1 TABLET BY MOUTH EVERY DAY 90 tablet 1 025 Active sertraline (ZOLOFT) 50 mg tablet TAKE 1 & 1/2 TABLETS BY MOUTH EVERY DAY 135 tablet 1 Active dilTIAZem CD (CARDIZEM CD) 240 mg 24 hr capsule TAKE 1 CAPSULE BY MOUTH EVERY DAY 90 capsule 1 025 Active hydroxychloroqui ne (PLAQUENIL) 200 mg tablet Take 1 tablet (200 mg total) by mouth. Prescribed by Rheumatology Active pregabalin (LYRICA) 100 mg capsuleIndicatio ns:Fibromyalgia Take 1 capsule (100 mg total) by mouth 2 (two) times a day. 60 capsule 2 Active tiZANidine (ZANAFLEX) 4 mg tablet Take 1 tablet (4 mg total) by mouth at bedtime as needed for muscle spasms. 30 tablet 3 025 Active dulaglutide (TRULICITY) 0.75 mg/0.5 mL pen injector injectionIndicat ions:Type 2 diabetes mellitus without complication, without long-term current use of insulin ([facility] V24, [facility] V28) Inject 0.5 mL (0.75 mg total) under the skin every 7 (seven) days. 6 mL 1 Active isosorbide mononitrate (IMDUR) 60 mg 24 hr tablet TAKE 1 TABLET BY MOUTH EVERY MORNING 90 tablet 1 Active tiZANidine (ZANAFLEX) 4 mg tablet Take 1 tablet (4 mg total) by mouth 3 (three) times a day if needed. 022 2024 Discontinued(R eorder) ibuprofen (ADVIL,MOTRIN) 600 mg tablet Take 1 tablet (600 mg total) by mouth every 8 (eight) hours if needed for moderate pain. 30 tablet 2024 Discontinued oxyCODONE (ROXICODONE) 5 mg immediate release tablet Take 0.5 tablets (2.5 mg total) by mouth every 4 (four) hours if needed for severe pain. Max Daily Amount: 15 mg 5 each 2024 Discontinued(T herapy completed) isosorbide mononitrate (IMDUR) 60 mg 24 hr tablet TAKE 1 TABLET BY MOUTH EVERY MORNING 90 tablet 1 025 2024 Discontinued pregabalin (LYRICA) 100 mg capsule TAKE 1 CAPSULE BY MOUTH TWICE DAILY 60 capsule 1 025 2024 Discontinued(R eorder) methylPREDNISolo ne (MEDROL DOSPAK) 4 mg tablet Follow schedule on package instructions 1 each 2024 Discontinued metFORMIN XR (GLUCOPHAGE-XR) 500 mg 24 hr tablet TAKE 1 TABLET BY MOUTH EVERY DAY WITH BREAKFAST 90 tablet 1 2024 Discontinued amoxicillin-clav ulanate (AUGMENTIN) 875-125 mg per tablet Take 1 tablet by mouth 2 (two) times a day for 7 days. 14 each 025 2024 predniSONE (DELTASONE) 20 mg tablet Take 2 tablets (40 mg total) by mouth See administration instructions for 3 days, THEN 1 tablet (20 mg total) See administration instructions for 3 days. 9 tablet 025 2024 Active Problems Problem Noted Date Diagnosed Date Hypokalemia 04/25/2025 Contusion of right knee 04/12/2025 Left wrist [...] 3 weeks. She was seen by her home aid who prescribed prednisone taper and she noticed [...] knee 04/24/2022 Constipation 04/24/2022 Asthma-COPD overlap syndrome ([facility]/HCC V24, CMS/H CC V28) 04/24/2022 Edema 12/19/2021 Overview (03/31/2024): Last Assessment & Plan: The patient refers symptoms of mild lower extremity edema that occur mostly towards the end of her day. She denies any lower extremity edema in the supervisor car and yard. The patient does mention that the use [...] pressures. Obstructive sleep apnea 09/10/2021 Overview (03/31/2024): [facility] Home sleep test 08/31/2021; weight 176; BMI [...] (03/31/2024): 08/04 NSTEMI, clean cath, likely spasm [facility] 10/08/18 - increase diltiazem to 240 [...] with fibromyalgia Stress incontinence 03/25/2016 Overview (03/31/2024): [facility] Urogynecology - 05/06/16 - Voiding diary, f/u with Dr. Padron, considering surgery 09/06/16 - mid urethral sling and cystoscopy Rheumatoid arthritis ([facility] V24, [facility] V28) 12/26/2014 Overview (06/01/2024): Follow up with [...] Encounters Date Type Department Care Team Description 05/11/2025 10:00 AM EST - 05/11/2025 11:59 PM [facility] Hospital Encounter [facility] [address] [phone] Encounter for screening mammogram for malignant neoplasm of breast Discharge Disposition: Home or Self Care 04/30/2025 12:37 PM EST - 04/30/2025 2:38 PM [facility] Emergency [facility] Emergency [address] [place] [phone] Carlos Boyce MD Contusion of right knee, initial encounter (Primary Dx); Diarrhea, unspecified type; Polypharmacy; Knee abrasion, left, subsequent encounter; Knee abrasion, right, subsequent encounter Discharge Disposition: Home or Self Care 04/25/2025 2:05 PM EST Lab Draw [address] Type 2 diabetes mellitus without complication, without long-term current use of insulin ([facility] V24, [facility] V28); Coronary artery disease involving levelock heart, unspecified vessel or lesion type, unspecified whether angina present; Hypokalemia 04/25/2025 1:40 PM EST - 04/25/2025 11:59 PM EST Hospital Encounter XRAY [address] [phone] Chronic midline low back pain without sciatica Discharge Disposition: Home or Self Care 04/25/2025 12:30 PM EST Office Visit Adult [address] [phone] Sy Youngblood MD Chronic midline low back pain without sciatica (Primary Dx); Type 2 diabetes mellitus without complication, without long-term current use of insulin (CMS/[facility] V24, CMS/[facility] V28); Coronary artery disease involving levelock heart, unspecified vessel or lesion type, unspecified whether angina present; Asthma-COPD overlap syndrome (CMS/HCC V24, CMS/HCC V28); Hypokalemia; Rheumatoid arthritis with positive rheumatoid factor, involving unspecified site ([facility] V24, [facility] V28); Fibromyalgia; Anxiety and depression; Chronic nonintractable headache, unspecified headache type; Acute non-recurrent maxillary sinusitis; Encounter for screening mammogram for malignant neoplasm of breast 04/25/2025 Results Follow-Up Adult [address] [phone] Sy Youngblood MD 04/25/2025 Telephone Adult [address] [phone] Sy Youngblood MD 04/12/2025 10:45 AM EDT Office Visit Orthopedic Surgery - [address] [place] [phone] Trista Tinsley MD Thumb pain, right (Primary Dx); Left wrist pain; Contusion of right knee, initial encounter 03/22/2025 11:15 AM EDT Office Visit Orthopedic Surgery [address] [phone] Trista Tinsley MD Left wrist pain (Primary Dx); Rheumatoid arthritis with positive rheumatoid factor, involving unspecified site ([facility] V24, [facility] V28) 03/18/2025 3:30 PM EDT Office Visit Orthopedic [address] [phone] Laxmi Salinas PA Pain (Primary Dx); Left wrist pain 03/07/2025 6:54 PM EDT - 03/07/2025 10:33 PM EDT Emergency [facility] Emergency [address] [place] [phone] Discharge Disposition: Left Against Medical Advice 02/25/2025 12:38 PM EDT - 02/25/2025 11:59 PM EDT Hospital Encounter Radiology Department - [address] [phone] Ataxia; Cognitive dysfunction; Memory changes; Memory loss Discharge Disposition: Home or Self Care 02/22/2025 10:15 AM EDT Office Visit Orthopedic [address] [phone] Laxmi Salinas PA Chronic pain of right thumb (Primary Dx) from Last 3 Months Immunizations Immunization Administration Dates Next Due Hepatitis B (Gyyrqnw-S-Gibeb , Recombivax HB-Adult) 19yo and older 10/22/2017,05/21/2017,04/23/2017 [...] 07/21/1997 PROCEDURE: HISTORICAL TUBAL LIGATION; COMMENT: in [place] MULTIPLE TOOTH EXTRACTIONS 2008 PROCEDURE: HISTORICAL DENTAL EXTRACTION; COMMENT: dentures OTHER SURGICAL HISTORY 08/17/2014 PROCEDURE: HISTORICAL TOTAL HYSTERECTOMY W/O BSO; COMMENT: LLUVIA/RSO HYSTERECTOMY 2014 PROCEDURE: HISTORICAL HYSTERECTOMY; COMMENT: polyp and cysts partial CHOLECYSTECTOMY 02/25/2018 PROCEDURE: HISTORICAL CHOLECYSTECTOMY COLONOSCOPY 05/11/2018 PROCEDURE: HISTORICAL COLONOSCOPY; COMMENT: Visually normal; random biopsies: normal. UPPER GASTROINTESTINAL ENDOSCOPY 05/11/2018 PROCEDURE: FL UPPER GI ENDOSCOPY PERFORMED; COMMENT: Visually normal; duodenal biopsies: non-specific duodenitis CARPAL TUNNEL RELEASE 08/25/2019 Left PROCEDURE: FL NEUROPLASTY &/TRANSPOS MEDIAN NRV CARPAL TUNNE; COMMENT: with arthrotomy of L thumb OTHER SURGICAL HISTORY 06/22/2020 Left PROCEDURE: FL CROSS INTRINSIC TRANSFER EACH TENDON; COMMENT: Dr. Tinsley; trapezoid ectomy and interpositional arthroplasty using FCR tendon CATARACT EXTRACTION 06/2022 Left PROCEDURE: HISTORICAL CATARACT REMOVAL CARPAL TUNNEL RELEASE 08/25/2023 Right PROCEDURE: FL NEUROPLASTY &/TRANSPOS MEDIAN NRV CARPAL TUNNE; COMMENT: [...] HTN (hypertension) DX:HTN (hyper tension) History of HI (myocardial infarction) 2015 DX:History of HI (myocardial infarction) Glaucoma DX:Glaucoma; COM MENT: left eye Rheumatoid arthritis ([facility]/ C V24, [facility] V28) DX:Rheumatoid arthritis ([facility] ) COPD (chronic obstructive pu lmonary disease) ([facility] V24, [facility] V28) DX:COPD (chronic o bstructive pulmonary disease) ([facility]) Myocardial infarction ([facility]/ CC V24, [facility] V28) Diabetes mellitus ([facility] V 24, [facility] V28) Depression Chronic pain disorder Neuromuscular disorder ([facility] V24, [facility] V28) fibermyalsia Joint pain osteoarthritis Diverticulosis Family [...] ncer, open heart surgery Mother (Age 40) HI Other Paternal Grandfather Paternal Grandmother HI Sister Son Alive Social History Tobacco Use [...] Sign Reading Time Taken Comments Blood Pressure 116/69 04/30/2025 12:10 PM EST Pulse 94 04/30/2025 12:10 PM EST Temperature 36.7 C (98.1 F) 04/30/2025 12:10 PM EST Respiratory Rate 18 04/30/2025 12:10 PM EST Oxygen Saturation 97% 04/30/2025 12:10 PM EST Inhaled Oxygen Concentration - - Weight 76.7 kg (169 lb) 05/11/2025 10:15 AM EST Height 154.9 cm (5' 1 ) 05/11/2025 10:15 AM EST Body Mass Index 31.93 05/11/2025 10:15 AM EST Plan of Treatment Upcoming Encounters Date Type Department Care Team (Late st Contact Info) Description 05/26/2025 11:00 AM EST Evaluation [facility] [place] [address] [facility] [address] [place] [phone] Shiraz Alonzo, PT [address] [place] [address] 06/03/2025 1:30 PM EST Office Visit Pulmonology - [place] [address] [facility] [address] [place] [phone] Nica Groves MD [address] [place] [phone] 06/27/2025 10:30 AM EST Office Visit Adult Medicine [address], [place] [phone] Lorenza Fine PA [address] [place], [place] Health Maintenance Due Date Last Done Comments Diabetes: Annual Foot Exam 10/05/1985 Diabetes: Annual Retina Eye Exam 10/05/1985 HIV Screening 05/24/2022 Hepatitis C Screening 05/24/2022 Medicare Annual Wellness Visit 05/24/2022 Social Influencers of Health Screening 05/24/2022 DTaP,Tdap,and Td Vaccines (2 - Td or Tdap) 02/17/2024 02/16/2014 Depression Screening 06/16/2024 COVID-19 Vaccine ( season) 2025 09/13/2021, 04/04/2021, 03/05/2021 Diabetes: Blood Sugar Control Test (HGBA1C) 10/23/2025 04/25/2025, 10/21/2024, 06/23/2024, Additional history exists Diabetes: Annual Urine Albumin-Creatinine Ratio (uACR) 04/25/2026 04/25/2025, 10/21/2024, 06/23/2024 Diabetes: Annual GFR (Glomerular Filtration Rate) 04/25/2026 04/25/2025, 03/07/2025, 10/21/2024, Additional history exists Hypertension/CHF/CAD Annual BMP Blood Test 04/25/2026 04/25/2025, 03/07/2025, 10/21/2024, Additional history exists Breast Cancer Screening 05/11/2027 05/11/20 25, 02/05/2024, 02/05/2024, Additional history exists Cholesterol Screening (Lipid Panel) [...] 45 to stablize small can/cup ' R co founder & ceo at least 10# 01/24 Met 10# R lat pinch at least 4 to enable opening food packages 01/24 Met 4# then increased pain R wrist ext at least 50 w/ tolerance for PWB'ing 01/24 Met and exceed at 60' Procedures Procedure Name Priority Date/Time Associated Diagnosis Comments MG MAMMO DIGITAL SCREENING W DOUGLAS BILAT Routine 05/11/2025 10:23 AM EST Encounter for screening mammogram for malignant neoplasm of breast BASIC METABOLIC PANEL Routine 04/25/2025 2:17 PM EST Type 2 diabetes mellitus without complication, without long-term current use of insulin (CMS/HCC V24, CMS/[facility] V28) Coronary artery disease involving levelock heart, unspecified vessel or lesion type, unspecified whether angina present Hypokalemia MAGNESIUM Routine 04/25/2025 2:17 PM EST Type 2 diabetes mellitus without complication, without long-term current use of insulin (CMS/[facility] V24, CMS/[facility] V28) Coronary artery disease involving levelock heart, unspecified vessel or lesion type, unspecified whether angina present Hypokalemia HEMOGLOBIN A1C Routine 04/25/2025 2:17 PM EST Type 2 diabetes mellitus without complication, without long-term current use of insulin (CMS/[facility] V24, CMS/[facility] V28) Coronary artery disease involving levelock heart, unspecified vessel or lesion type, unspecified whether angina present MICROALBUMIN CREATININE URINE RATIO Routine 04/25/2025 2:17 PM EST Type 2 diabetes mellitus without complication, without long-term current use of insulin ([facility] V24, CMS/[facility] V28) Coronary artery disease involving levelock heart, unspecified vessel or lesion type, unspecified whether angina present XR LUMBAR SPINE 4+ VIEWS Routine 04/25/2025 1:49 PM EST Chronic midline low back pain without sciatica XR WRIST 3+ VIEWS LEFT Routine 3:24 [...] AM EDT Chronic pain of right thumb LIPID PANEL WITH REFLEX TO DIRECT LDL Routine 10/21/2024 12:00 PM EDT Ataxia Injury of left knee, initial encounter Primary hypertension Mixed hyperlipidemia Rheumatoid arthritis with positive rheumatoid factor, involving unspecified site (CMS/HCC V24, CMS/HCC V28) Asthma-COPD overlap syndrome (CMS/HCC V24, CMS/HCC V28) Coronary artery vasospasm (CMS/HCC V24) Prediabetes from Last 3 Months or Most Recently Relevant to Health Maintenance Results * MG Mammo Digital Screening w Douglas bilat (05/11/2025 10:23 AM EST) Anatomical Region Laterality Modality Breast Bilateral Mammography 05/13/2025 11:3 5 AM EST Impressions 05/13/2025 11:39 AM EST No mammographic evidence of malignancy. A negative mammogram in the presence of a clinically suspicious palpable abnormality does not preclude the possibility of malignancy or alter the indications for biopsy. PQRI CPT II 3342F Code 46653, 33678 PQRI 225 CPT II 7025F TISSUE DENSITY: There are scattered areas of fibroglandular density. (BI-RADS category B) IMPRESSION: Benign. BI-RADS CATEGORY: 2 - BENIGN RECOMMENDATION: Screening bilateral mammogram is recommended in 1 year. Mammo Location: [facility], [address] [place] [id number] -------- FINAL REPORT -------- Dictated By: Delano Solis Dictated Date: 05/13/2025 11:35 ET Assigned Physician: Delano Solis Reviewed and Electronically Signed By: Delano Solis Signed Date: 05/13/2025 11:39 ET Workstation ID: [id number] Transcribed By: Self Edit Transcribed Date: 05/13/2025 11:35 ET Narrative 05/13/2025 11:39 AM EST CLINICAL: The patient is a 49 years Female presenting for routine screening mammography. COMPARISON: Outside studies most recently 02/05/2024 and most remotely 12/04/2017. TECHNIQUE: Full-field digital mammography of the breasts bilaterally consisting of tomosynthesis in MLO and CC projection is performed in the [employer] 2000-D unit. Computer aided detection utilizing the iCAD system was utilized. FINDINGS: The breasts are again seen to be composed of a combination of fatty and fibroglandular elements. Scattered benign punctate and coarse calcifications bilaterally are without suspicious interval change. There is no suspicious cluster of microcalcifications, mass, or area of architectural distortion. There is no skin thickening or nipple retraction. Procedure Note Delano Solis MD - 05/13/2025 CLINICAL: The patient is a 49 years Female presenting for routinescreening mammography. COMPARISON: Outside studies most recently 02/05/2024 and most remotely12/04/2017. TECHNIQUE: Full-field digital mammography of the breasts bilaterallyconsisting of tomosynthesis in MLO and CC projection is performed in the[employer] 2000-D unit. Computer aided detection utilizing the iCADsystem was utilized. FINDINGS: The breasts are again seen to be composed of a combination offatty and fibroglandular elements. Scattered benign punctate and coarsecalcifications bilaterally are without suspicious interval change. Thereis no suspicious cluster of microcalcifications, mass, or area ofarchitectural distortion. There is no skin thickening or nippleretraction. IMPRESSION: No mammographic evidence of malignancy. A negative mammogram in the presence of a clinically suspicious palpableabnormality does not preclude the possibility of malignancy or alter theindications for biopsy. PQRI CPT II 3342F Code 87254, 58343 PQRI 225 CPT II 7025F TISSUE DENSITY: There are scattered areas of fibroglandular density.(BI-RADS category B) IMPRESSION: Benign. BI-RADS CATEGORY: 2 - BENIGN RECOMMENDATION: Screening bilateral mammogram is recommended in 1 year. Mammo Location: [facility], [address] [facility] [address] -------- FINAL REPORT -------- Dictated By: Delano Solis Dictated Date: 05/13/2025 11:35 ET Assigned Physician: Delano Solis Reviewed and Electronically Signed By: Delano Solis Signed Date: 05/13/2025 11:39 ET Workstation ID: [id number] Transcribed By: Self Edit Transcribed Date: 05/13/2025 11:35 ET Sy Youngblood MD IMG BI PROCEDURES Final Res ult * Microalbumin creatinine urine ratio (04/25/2025 2:17 PM EST) Creatinine, Urine 117.0 mg/dL LAB CHEMISTRY METHOD 04/25/2025 9:09 PM EST [facility] Microalb, Ur 8.3 0.0 - 29.0 mg/L LAB CHEMISTRY METHOD 04/25/2025 9:09 PM EST [facility] Microalb/Creat Ratio 7 <30 mg/g creat LAB CHEMISTRY METHOD 04/25/2025 9:09 PM EST [facility] Urine Urine specimen obtained by clean catch procedure / Unknown Non-blood Collection / Unknown 04/25/2025 2:17 PM EST 04/25/2025 2:17 PM EST Sy Youngblood MD LAB URINE ORDERABLES Final Result [facility] [address] [place] [address], [place] [phone] * (ABNORMAL) Magnesium (04/25/2025 2:17 PM EST) Magnesium 1.6(L) 1.9 - 2.6 mg/dL LAB CHEMISTRY METHOD 04/25/2025 8:17 PM EST [facility] Blood Venous blood specimen / Unknown Venipuncture / Unknown 04/25/2025 2:17 PM EST 04/25/2025 2:17 PM EST Sy Youngblood MD LAB BLOOD ORDERABLES Final Result Performing Organization Address [facility]/ZIP Co de Phone Number [facility] [address] [place] [address], [place] [phone] * (ABNORMAL) Hemoglobin A1c (04/25/2025 2:17 PM EST) Pathologist [facility] Hemoglobin A1C 6.6(H) <6.5 % LAB CHEMISTRY METHOD 04/26/2025 11:23 AM EST [facility] Mean Bld Glu Estim. 143 mg/dL LAB CHEMISTRY METHOD 04/26/2025 11:23 AM [facility] Blood Venous blood specimen / Unknown Venipuncture / Unknown 04/25/2025 2:17 PM EST 04/25/2025 2:17 PM EST Sy Youngblood MD LAB BLOOD ORDERABLES Final Result [facility] [address] [place] [address], [place] [phone] * (ABNORMAL) Basic metabolic panel (04/25/2025 2:17 PM EST) [facility] Sodium 141 133 - 145 mmol/L LAB CHEMISTRY METHOD 04/25/2025 8:17 PM [facility] Potassium 3.3(L) 3.5 - 5.5 mmol/L LAB CHEMISTRY METHOD 04/25/2025 8:17 PM EST [facility] Chloride 108 96 - 110 mmol/L LAB CHEMISTRY METHOD 04/25/2025 8:17 PM [facility] CO2 25 21 - 32 mmol/L LAB CHEMISTRY METHOD 04/25/2025 8:17 PM [facility] Anion Gap 8 3 - 11 LAB CHEMISTRY METHOD 04/25/2025 8:17 PM EST [facility] Glucose 106(H) 70 - 100 mg/dL LAB CHEMISTRY METHOD 04/25/2025 8:17 PM [facility] BUN 10 5 - 25 mg/dL LAB CHEMISTRY METHOD 04/25/2025 8:17 PM [facility] Creatinine 0.78 0.50 - 1.10 mg/dL LAB CHEMISTRY METHOD 04/25/2025 8:17 PM EST [facility] eGFR 93 >=60 mL/min/1. 73m2 LAB CHEMISTRY METHOD 04/25/2025 8:17 PM [facility] Comment:Calculation based on the Chronic Kidney Disease Epidemiology Collaboration (CKD-EPI) equation refit without adjustment for race. BUN/Creatinine Ratio 12.8 LAB CHEMISTRY METHOD 04/25/2025 8:17 PM [facility] Calcium 9.5 8.5 - 10.5 mg/dL LAB CHEMISTRY METHOD 04/25/2025 8:17 PM EST [facility] Blood Venous blood specimen / Unknown Venipuncture / Unknown 04/25/2025 2:17 PM EST 04/25/2025 2:17 PM EST us Sy Youngblood MD LAB BLOOD ORDERABLES Final Result [facility] [address] [place] [address], * XR Lumbar Spine 4+ Views (04/25/2025 1:49 PM EST) Anatomical Region Laterality Modality Spine, L-spine Radiographic Natalia ging 04/25/2025 1:53 PM EST Impressions 04/25/2025 1:59 PM EST Mild spondylosis. Transitional L5. No significant change from the previous study. -------- FINAL REPORT -------- Dictated By: Aida Persaud Dictated Date: 04/25/2025 13:53 ET Assigned Physician: Aida Persaud Reviewed and Electronically Signed By: Aida Persaud Signed Date: 04/25/2025 13:59 ET Workstation ID: [id number] Transcribed By: Self Edit Transcribed Date: 04/25/2025 13:53 ET Narrative 04/25/2025 1:59 PM EST LUMBOSACRAL SPINE, 4 VIEWS INCLUDING OBLIQUES HISTORY: Chronic midline low back pain without sciatica. Prior: Lumbar spine 10/04/2020. FINDINGS: There is normal alignment of the lumbosacral spine. No fractures are seen. There is sacralization of the left transverse process of L5. There is minor endplate spurring at L2-3 and L3-4. There is mild endplate spurring of the visualized lower thoracic spine as well. There is mild sclerosis of the lower SI joints bilaterally. There are surgical clips in the right upper quadrant. There is atherosclerosis. Procedure Note Aida Persaud MD - 04/25/2025 LUMBOSACRAL SPINE, 4 VIEWS INCLUDING OBLIQUES HISTORY: Chronic midline low back pain without sciatica. Prior: Lumbar spine 10/04/2020. FINDINGS: There is normal alignment of the lumbosacral spine. No fractures areseen. There is sacralization of the left transverse process of L5. There is minor endplate spurring at L2-3 and L3-4. There is mild endplatespurring of the visualized lower thoracic spine as well. There is mild sclerosis of the lower SI joints bilaterally. There are surgical clips in the right upper quadrant. There is atherosclerosis. IMPRESSION: Mild spondylosis. Transitional L5. No significant change from the previousstudy. -------- FINAL REPORT -------- Dictated By: Aida Persaud Dictated Date: 04/25/2025 13:53 ET Assigned Physician: Aida Persaud Reviewed and Electronically Signed By: Aida Persaud Signed Date: 04/25/2025 13:59 ET Workstation ID: [id number] Transcribed By: Self Edit Transcribed Date: 04/25/2025 13:53 ET us Sy Youngblood MD IMG XR PROCEDURES Final Res ult * XR Wrist 3+ Views Left (03/18/2025 [...] LAB HEMETOLOGY METHOD 03/07/2025 8:26 PM EDT [facility] RBC 4.40 3.80 - 4.80 M/Health system LAB HEMETOLOGY METHOD 03/07/2025 8:26 PM EDT [facility] Hemoglobin 13.1 11.5 - 16.0 g/dL LAB HEMETOLOGY METHOD 03/07/2025 8:26 PM EDT [facility] Hematocrit 39.0 35.0 - 47.0 % LAB HEMETOLOGY METHOD 03/07/2025 8:26 PM EDT [facility] MCV 87.8 79.0 - 98.0 FL LAB HEMETOLOGY METHOD 03/07/2025 8:26 PM EDT [facility] MCH 29.5 27.0 - 32.0 pcg LAB HEMETOLOGY METHOD 03/07/2025 8:26 PM EDT [facility] MCHC 33.6 32.0 - 37.0 g/dL LAB HEMETOLOGY [facility] RDW 17.6(H) 11.0 - 15.0 % LAB HEMETOLOGY METHOD 03/07/2025 8:26 PM [facility] Platelets 336 130 - 400 K/mcL LAB HEMETOLOGY METHOD 03/07/2025 8:26 PM [facility] MPV 11.3(H) 7.0 - 11.0 FL LAB HEMETOLOGY METHOD 03/07/2025 8:26 PM [facility] NRBC 0.0 <1.0 % LAB HEMETOLOGY METHOD 03/07/2025 8:26 PM [facility] NRBC Absolute 0.00 <0.10 K/mcL LAB HEMETOLOGY METHOD 03/07/2025 8:26 PM [facility] Neutrophils Relative 74.9 % LAB HEMETOLOGY METHOD 03/07/2025 8:26 PM [facility] Lymphocytes Relative 20.3 % LAB HEMETOLOGY METHOD 03/07/2025 8:26 PM [facility] Monocytes Relative 4.3 % LAB HEMETOLOGY METHOD 03/07/2025 8:26 PM [facility] Eosinophils Relative 0.0 % LAB HEMETOLOGY METHOD 03/07/2025 8:26 PM [facility] Basophils Relative 0.1 % LAB HEMETOLOGY METHOD 03/07/2025 8:26 PM [facility] Immature Granulocytes Relative 0.4 % LAB HEMETOLOGY METHOD 03/07/2025 8:26 PM [facility] Neutrophils Absolute 11.65(H) 1.50 - 7.00 K/mcL LAB HEMETOLOGY METHOD 03/07/2025 8:26 PM [facility] Lymphocytes Absolute 3.16 1.00 - 5.00 K/mcL LAB HEMETOLOGY METHOD 03/07/2025 8:26 PM EDT [facility] Monocytes Absolute 0.67 0.20 - 1.00 K/Health system LAB HEMETOLOGY METHOD 03/07/2025 8:26 PM EDT [facility] Eosinophils Absolute 0.00 0.00 - 0.50 K/Health system LAB HEMETOLOGY METHOD 03/07/2025 8:26 PM EDT [facility] Basophils Absolute 0.01 0.00 - 0.20 K/Health system LAB HEMETOLOGY METHOD 03/07/2025 8:26 PM EDT [facility] Immature Granulocytes Absolute 0.07(H) 0.00 - 0.03 K/Health system LAB HEMETOLOGY METHOD 03/07/2025 8:26 PM EDT [facility] Blood Venous blood specimen / Unknown Venipuncture / Unknown 03/07/2025 7:37 PM EDT 03/07/2025 8:10 PM EDT Keyon Farfan MD LAB BLOOD ORDERABLES Final R esult [facility] [address] [place] [address], [place] [phone] * Lipase (03/07/2025 7:37 PM EDT) Lipase 36 13 - 75 unit/L LAB CHEMISTRY METHOD 03/07/2025 8:47 PM EDT [facility] Blood Venous blood specimen / Unknown Venipuncture / Unknown 03/07/2025 7:37 PM EDT 03/07/2025 8:10 PM EDT Keyon Farfan MD LAB BLOOD ORDERABLES Final R esult [facility] [address] [place] [address], [place] [phone] * (ABNORMAL) Comprehensive metabolic panel (03/07/2025 7:37 PM EDT) Sodium 141 133 - 145 mmol/L LAB CHEMISTRY METHOD 03/07/2025 8:47 PM [facility] Potassium 3.1(L) 3.5 - 5.5 mmol/L LAB CHEMISTRY METHOD 03/07/2025 8:47 PM [facility] Chloride 108 96 - 110 mmol/L LAB CHEMISTRY METHOD 03/07/2025 8:47 PM [facility] CO2 27 21 - 32 mmol/L LAB CHEMISTRY METHOD 03/07/2025 8:47 PM [facility] Anion Gap 6 3 - 11 LAB CHEMISTRY METHOD 03/07/2025 8:47 PM [facility] Glucose 90 70 - 100 mg/dL LAB CHEMISTRY METHOD 03/07/2025 8:47 PM [facility] BUN 11 5 - 25 mg/dL LAB CHEMISTRY METHOD 03/07/2025 8:47 PM [facility] Creatinine 0.75 0.50 - 1.10 mg/dL LAB CHEMISTRY METHOD 03/07/2025 8:47 PM [facility] eGFR 98 >=60 mL/min/1. 73m2 LAB CHEMISTRY METHOD 03/07/2025 8:47 PM [facility] Comment:Calculation based on the Chronic Kidney Disease Epidemiology Collaboration (CKD-EPI) equation refit without adjustment for race. BUN/Creatinine Ratio 14.7 LAB CHEMISTRY METHOD 03/07/2025 8:47 PM [facility] Calcium 9.0 8.5 - 10.5 mg/dL LAB CHEMISTRY METHOD 03/07/2025 8:47 PM [facility] AST (SGOT) 17 10 - 42 unit/L LAB CHEMISTRY METHOD 03/07/2025 8:47 PM [facility] ALT (SGPT) 51 10 - 60 unit/L LAB CHEMISTRY METHOD 03/07/2025 8:47 PM EDT [facility] Alkaline Phosphatase 180(H) 42 - 121 unit/L LAB CHEMISTRY METHOD 03/07/2025 8:47 PM EDT [facility] Total Protein 6.8 6.0 - 8.0 g/dL LAB CHEMISTRY METHOD 03/07/2025 8:47 PM EDT [facility] Albumin 3.4 3.2 - 5.0 g/dL LAB CHEMISTRY METHOD 03/07/2025 8:47 PM EDT [facility] Total Bilirubin 0.2 0.0 - 1.4 mg/dL LAB CHEMISTRY METHOD 03/07/2025 8:47 PM EDT [facility] Blood Venous blood specimen / Unknown Venipuncture / Unknown 03/07/2025 7:37 PM EDT 03/07/2025 8:10 PM EDT us Keyon Farfan MD LAB BLOOD ORDERABLES Final R esult [facility] [address] [place] [address], * MR Brain wo Contrast (02/25/2025 1:33 [...] Signed Date: 02/25/2025 15:51 ET Workstation ID: [id number] Transcribed By: Self Edit Transcribed Date: 02/25/2025 [...] Signed Date: 02/25/2025 15:51 ET Workstation ID: [id number] Transcribed By: Self Edit Transcribed Date: 02/25/2025 15:40 ET [facility] Fine [facility] IMG MRI PROCEDURES Final Result * XR [...] thumb postsurgical changes, stable. No acute findings us Laxmi BROOKS IMG XR PROCEDURES Final Resul t * Lipid panel with reflex to direct LDL (10/21/2024 12:00 PM EDT) Cholesterol 165 0 - 200 mg/dL LAB CHEMISTRY METHOD 10/21/2024 2:54 PM [facility] Triglycerides 140 0 - 150 mg/dL LAB CHEMISTRY METHOD 10/21/2024 2:54 PM [facility] HDL 48 >=40 mg/dL LAB CHEMISTRY METHOD 10/21/2024 2:54 PM T [facility] LDL Calculated 89 0 - 100 mg/dL LAB CHEMISTRY METHOD 10/21/2024 2:54 PM [facility] VLDL Cholesterol Edy 28 mg/dL LAB CHEMISTRY METHOD 10/21/2024 2:54 PM T [facility] Non HDL Chol. (LDL+VLDL) 117 <145 mg/dL LAB CHEMISTRY METHOD 10/21/2024 2:54 PM T [facility] Chol/HDL Ratio 3.4 0.0 - 4.4 LAB CHEMISTRY METHOD 10/21/2024 2:54 PM [facility] Blood Venous blood specimen / Unknown Venipuncture / Unknown 10/21/2024 12:00 PM EDT 10/21/2024 12:00 PM EDT us Lorenza BROOKS LAB BLOOD ORDERABLES Fin al Result ANDREW [facility] ([facility]) [facility] [address] [place] [address], [place] [phone] from Last 3 Months or Most Recently Relevant to Health Maintenance Insurance MEDICARE MEDICAID - [place] Advance Directives * [...] currently active code status orders. Care Teams Retail Sales Director Relationship Specialty Start Date End Date Sy Youngblood MD [address] [place] [address] PCP - General Internal Medicine 01/24/22
== END 2025-05-18 11:43 | disposition home or self-care (01) ==
LOC: HO.HSM 11:15
PROVIDERS: PCP Physician Assistant; Visit Provider Nurse Practitioner
DX: G43.709 Chronic migraine without aura, not intractable, without status migrainosus (principal); M79.18 Myalgia, other site; M54.81 Occipital neuralgia; G47.33 Obstructive sleep apnea (adult) (pediatric)
CPT/HCPCS: 99214

== ENCOUNTER → 2025-05-18 11:15 | Outpatient (BNVA) | payer MEDICARE, MEDICAID, SELFPAY | PROVIDERS: PCP Physician Assistant; Visit Provider Nurse Practitioner | DX: G43.709 Chronic migraine without aura, not intractable, without status migrainosus (principal); M79.18 Myalgia, other site; M54.81 Occipital neuralgia; G47.33 Obstructive sleep apnea (adult) (pediatric); Z99.89 Dependence on other enabling machines and devices | CPT/HCPCS: 99212 ==